=== PATIENT | female | born 1940 | race Hispanic/Latino ===

== ENCOUNTER 2018-08-24 09:17 | Outpatient (CLI) | payer MEDICARE ==
--- NOTE | 2018-08-24 12:19 | Vascular Lab Report ---
PROCEDURE: VL VENOUS DUPLEX LE BILAT TECHNIQUE: Duplex Doppler sonography of the BILATERAL lower extremities. Frye scale imaging with and without compression, spectral waveform analysis with and without augmentation, and color flow Dopple r were employed. HISTORY: DVT RIGHT LEG CALF COMPARISONS: None FINDINGS: RIGHT lower EXTREMITY: Deep Venous Thrombus: None Superficial Venous Thrombus: None Venous valvular incompetence: None Soft tissue abnormality: Enlarged lymph node in the right groin measuring approximately 3 x 1.3 cm. LEFT lower EXTREMITY: Deep Venous Thrombus: None Superficial Venous Thrombus: None Venous valvular incompetence: None Soft tissue abnormality: 2.6 x 1.3 cm Coffey's cyst. Enlarged lymph node in the left groin measuring approximately 2.4 x 1.1 cm. IMPRESSION: No evidence of deep venous thrombosis in the bilateral lower extremities. 2.6 x 1.3 cm left Coffey cyst. Enlarged bilateral groin lymph nodes. This document is electronically signed by Pallavi Angela MD., Aug 24 2018 12:16:26 PM ET
== END 2018-08-24 09:18 | disposition home or self-care (01) ==
LOC: VAS 09:17
PROVIDERS: ATTEND Psychiatry & Neurology Neurology
DX: I82.491 Acute embolism and thrombosis of other specified deep vein of right lower extremity (principal); M71.22 Synovial cyst of popliteal space [Baker], left knee; I11.0 Hypertensive heart disease with heart failure; I50.9 Heart failure, unspecified; Z90.710 Acquired absence of both cervix and uterus
CPT/HCPCS: 93970

== ENCOUNTER 2020-02-25 11:04 | Inpatient (IN) | payer MEDICARE ==
--- NOTE | 2020-02-25 11:08 | Emergency Department Report ---
ED Neuro Deficit HPI - General Chief Complaint: Neuro Symptoms/Deficit Stated Complaint: STROKE Time Seen by Provider: 02/25/20 11:05 Source: patient, family, EMS (Verbal report received from emergency medical services. EMS documentation not available at time of chart dictation ), RN notes reviewed, old records reviewed Mode of arrival: Stretcher Limitations: Physical Limitation - History of Present Illness Initial Comments: The patient was evaluated in the emergency department for symptoms described in the history of present illness. He/she was evaluated in the context of the global COVID-19 pandemic, which necessitated consideration that the patient might be at risk for infection with the virus that causes COVID-19. Institutional protocols and algorithms that pertain to the evaluation of patients at risk for COVID-19 are in a state of rapid change based on information released by regulatory bodies including the CDC and federal and state organizations. These policies and algorithms were followed during the patient's care in the emergency department. Please note that these policies, procedures and recommendations changed on a rapid basis. Patient is a 79-year-old female. She has a history of A. fib, aortic stenosis, hypertension, diabetes, hyperlipidemia, anxiety, obesity. She also has a history of traumatic subdural hematoma, and is not currently on systemic anticoagulation. She is brought to the hospital by emergency medical services, in addition to her daughter, with a concern of presumed stroke. Patient herself denies physical pain. She indicates she is not able to speak clearly. She is not certain when the symptoms started. I discussed the patient's history with her daughter, Ms. Estrella Ferro, who indicated the patient was in her usual state of health last night, and woke up this morning with slurred speech. As per her daughter, no trauma, no fever, positive cough, positive lower extremity swelling, no loss of taste or smell, no hematemesis or bright red blood per rectum. The patient herself does not describe qualitative nature of her symptoms, except as noted, I does not describe exacerbating factor s, relieving factors, or aggravating factors. -: This morning Location: speech Presenting Symptoms: Present: Unable to Speak Clearly History of same: No Place: home On Anticoagulants: No Context: other (Patient woke up with symptoms) - Related Data Home Medications: Home Medications Medication Instructions Recorded Confirmed Last Taken ALPRAZolam [Xanax] 0.25 mg PO HS 04/30/13 01/30/17 01/29/17 Aspirin [Aspirin BABY CHEW TAB] 81 mg PO QDAY 04/30/13 01/30/17 01/29/17 Metoprolol [Lopressor TAB] 50 mg PO TID 04/30/13 01/30/17 01/29/17 allopurinoL [Zyloprim] 100 mg PO QDAY 04/30/13 01/30/17 01/29/17 traMADoL [Ultram 50 MG tab] 50 mg PO QHS PRN 04/30/13 01/30/17 01/29/17 Losartan [Cozaar] 100 mg PO QDAY 05/05/13 01/30/17 01/29/17 Furosemide [Lasix TAB] 20 mg PO 1XW 01/30/17 01/30/17 01/24/17 Allergies/Adverse Reactions: Allergies Allergy/AdvReac Type Severity Reaction Status Date / Time codeine Allergy Rash Verified 05/05/13 12:11 phenazopyridine HCl Allergy Rash Verified 04/30/13 14:23 [From Pyridium] electrolyzed water AdvReac Shortness Verified 01/29/17 20:56 [From Microcyn] of Breath hydromorphone [Hydromorphone] AdvReac Dizziness Verified 05/05/13 12:11 hypochlorous acid AdvReac Shortness Verified 01/29/17 20:56 [From Microcyn] of Breath morphine AdvReac Dizziness Verified 05/05/13 12:11 sodium chloride AdvReac Shortness Verified 01/29/17 20:56 [From Microcyn] of Breath sodium hypochlorite solution AdvReac Shortness Verified 01/29/17 20:56 [From Microcyn] of Breath ED Review of Systems ROS: Stated complaint: STROKE Other details as noted in HPI Comment: Unobtainable due to pts medical conditions Constitutional: denies: fever Respiratory: cough, shortness of breath Cardiovascular: edema Gastrointestinal: denies: nausea, vomiting, diarrhea Genitourinary: as per HPI Musculoskeletal: as per HPI Skin: as per HPI Neurological: as per HPI, weakness, other (Slurred speech) ED Past Medical Hx - Past Medical History Hx Hypertension: Yes Hx Congestive Heart Failure: Yes Additional medical history: a-fib - Surgical History Hx Cholecystectomy: Yes Additional Surgical History: 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 - Social History Smoking Status: Never Smoker - Medications Home Medications: Home Medications Medication Instructions Recorded Confirmed Last Taken Type ALPRAZolam [Xanax] 0.25 mg PO HS 04/30/13 01/30/17 01/29/17 History Aspirin [Aspirin BABY CHEW TAB] 81 mg PO QDAY 04/30/13 01/30/17 01/29/17 History Metoprolol [Lopressor TAB] 50 mg PO TID 04/30/13 01/30/17 01/29/17 History allopurinoL [Zyloprim] 100 mg PO QDAY 04/30/13 01/30/17 01/29/17 History traMADoL [Ultram 50 MG tab] 50 mg PO QHS PRN 04/30/13 01/30/17 01/29/17 History Losartan [Cozaar] 100 mg PO QDAY 05/05/13 01/30/17 01/29/17 History Furosemide [Lasix TAB] 20 mg PO 1XW 01/30/17 01/30/17 01/24/17 History ED Neuro Physical Exam - General Limitations: Physical Limitation General appearance: alert, in no apparent distress, anxious, obese Suspected Stroke: Yes - Head Head exam: Present: atraumatic, normocephalic - Eye Eye exam: Present: normal appearance, EOMI. Absent: nystagmus - ENT ENT exam: Present: normal exam, normal orophraynx, mucous membranes moist, normal external ear exam - Neck Neck exam: Present: normal inspection, full ROM. Absent: tenderness, meningismus - Respiratory Respiratory exam: Present: normal lung sounds bilaterally, decreased breath sounds. Absent: respiratory distress, wheezes, rales, rhonchi, stridor - Cardiovascular Cardiovascular Exam: Present: regular rate, irregular rhythm, normal heart sounds. Absent: bradycardia, tachycardia, systolic murmur, diastolic murmur, rubs, gallop - GI/Abdominal GI/Abdominal exam: Present: soft. Absent: distended, tenderness, guarding, rebound, rigid, pulsatile mass - Extremities Exam Extremities exam: Present: normal inspection, full ROM, pedal edema (2+ edema in the bilateral lower extremities), other (2+ pulses noted in the bilateral upper and lower extremities. There is no palpable cord. negative Homans sign. Muscular compartments are soft. The pelvis is stable.). Absent: calf tendernes s - Back Exam Back exam: Present: normal inspection, full ROM. Absent: tenderness, CVA tenderness (R), CVA tenderness (L), paraspinal tenderness, vertebral tenderness - Neurological Exam Neurological exam: Present: alert, other (No facial droop. Tongue midline. Extraocular movements intact bilaterally. Facial sensation intact to light touch in V1, V2, V3 distribution bilaterally. 5 and a 5 strength in 4 extremities. Sensation intact to light touch in 4 extremities.) - NIHSS Assessment Interval: Baseline 1a. Level of Consciousness: alert/keenly responsive 1b. LOC Questions: dysarthric/intubated 1c. LOC Commands: performs tasks correctly 2. Best Gaze: normal 3. Visual: no visual loss 4. Facial Palsy: normal symmetrical movement 5b. Motor Arm Right: no drift 5a. Motor Arm Left: no drift 6a. Motor Leg Left: no drift 6b. Motor Leg Right: no drift 7. Limb Ataxia: absent 8. Sensory: normal 9. Best Language: no aphasia 10. Dysarthria: severe dysarthria 11. Extinction/Inattention: no abnormality Total Score: 3 Stroke Severity: Minor Stroke - Psychiatric Psychiatric exam: Present: anxious - Skin Skin exam: Present: warm, dry, intact, normal color. Absent: rash ED Course Vital Signs 02/25/20 11:30 Temperature 97.7 F Pulse Rate 72 Respiratory 17 Rate Blood Pressure 122/78 [Left] O2 Sat by Pulse 97 Oximetry - Reevaluation(s) Reevaluation #1: 02/25/20 13:21 The patient's daughter is updated on findings. She indicates the patient follows with [facility] cardiology. She asks that I discussed the patient's care with them. I think it would be worthwhile to have cardiology closely follow-up with the patient, as she is currently in A. fib, and is experiencing subacute stroke, and probable CHF. It would be helpful for the inpatient team to have cardiology input, in order to determine long-term anticoagulation strategy, if any. Reevaluation #2: 02/25/20 13:26 Contacted cardiology on-call, ALICE Rizo, discussed patient's history, physical, pertinent examination findings and laboratory studies, cardiology will follow on the inpatient side of things, and make further determinations and recommendations as to patient's need for systemic anticoagulation. - Lab Data Result diagrams: 02/25/20 11:25 02/25/20 11:25 Lab Results 02/25/20 02/25/20 02/25/20 Range/Units 11:25 11:25 11:25 WBC 4.9 (4.5-11.0) K/mm3 RBC 3.76 (3.65-5.03) M/mm3 Hgb 12.7 (10.1-14.3) gm/dl Hct 36.9 (30.3-42.9) % MCV 98 H (79-97) fl MCH 34 H (28-32) pg MCHC 35 H (30-34) % RDW 14.9 (13.2-15.2) % Plt Count 86 L (140-440) K/mm3 Lymph % (Auto) 16.3 (13.4-35.0) % Dubois % (Auto) 11.0 H (0.0-7.3) % Eos % (Auto) 3.7 (0.0-4.3) % Baso % (Auto) 0.9 (0.0-1.8) % Lymph # (Auto) 0.8 L (1.2-5.4) K/mm3 Dubois # (Auto) 0.5 (0.0-0.8) K/mm3 Eos # (Auto) 0.2 (0.0-0.4) K/mm3 Baso # (Auto) 0.0 (0.0-0.1) K/mm3 Add Manual Diff Complete Seg Neutrophils % 68.3 (40.0-70.0) % Seg Neutrophils # 3.3 (1.8-7.7) K/mm3 PT 14.0 (12.2-14.9) Sec. INR 1.06 (0.87-1.13) APTT 32.0 (24.2-36.6) Sec. Thrombin Time 17.5 (15.1-19.6) Sec. Sodium (137-145) mmol/L Potassium (3.6-5.0) mmol/L Chloride (98-107) mmol/L Carbon Dioxide (22-30) mmol/L Anion Gap mmol/L BUN (7-17) mg/dL Creatinine (0.6-1.2) mg/dL Estimated GFR ml/min BUN/Creatinine Ratio % Glucose (65-100) mg/dL POC Glucose (70-105) mg/dL Calcium (8.4-10.2) mg/dL Magnesium (1.7-2.3) mg/dL Total Bilirubin (0.1-1.2) mg/dL AST (5-40) units/L ALT (7-56) units/L Alkaline Phosphatase (35-129) units/L Total Creatine Kinase 47 (30-135) units/L CK-MB (CK-2) 2.1 (0.0-4.0) ng/mL CK-MB (CK-2) Rel Index 4.4 H (0-4) Troponin T < 0.010 (0.00-0.029) ng/mL NT-Pro-B Natriuret Pep (0-900) pg/mL Total Protein (6.3-8.2) g/dL Albumin (3.9-5) g/dL Albumin/Globulin Ratio % 02/25/20 02/25/20 Range/Units 11:25 11:40 WBC (4.5-11.0) K/mm3 RBC (3.65-5.03) M/mm3 Hgb (10.1-14.3) gm/dl Hct (30.3-42.9) % MCV (79-97) fl MCH (28-32) pg MCHC (30-34) % RDW (13.2-15.2) % Plt Count (140-440) K/mm3 Lymph % (Auto) (13.4-35.0) % Dubois % (Auto) (0.0-7.3) % Eos % (Auto) (0.0-4.3) % Baso % (Auto) (0.0-1.8) % Lymph # (Auto) (1.2-5.4) K/mm3 Dubois # (Auto) (0.0-0.8) K/mm3 Eos # (Auto) (0.0-0.4) K/mm3 Baso # (Auto) (0.0-0.1) K/mm3 Add Manual Diff Seg Neutrophils % (40.0-70.0) % Seg Neutrophils # (1.8-7.7) K/mm3 PT (12.2-14.9) Sec. INR (0.87-1.13) APTT (24.2-36.6) Sec. Thrombin Time (15.1-19.6) Sec. Sodium 141 (137-145) mmol/L Potassium 3.6 (3.6-5.0) mmol/L Chloride 102.4 (98-107) mmol/L Carbon Dioxide 28 (22-30) mmol/L Anion Gap 14 mmol/L BUN 37 H (7-17) mg/dL Creatinine 1.3 H (0.6-1.2) mg/dL Estimated GFR 40 ml/min BUN/Creatinine Ratio 28 % Glucose 106 H (65-100) mg/dL POC Glucose 114 H (70-105) mg/dL Calcium 9.6 (8.4-10.2) mg/dL Magnesium 2.10 (1.7-2.3) mg/dL Total Bilirubin 1.30 H (0.1-1.2) mg/dL AST 31 (5-40) units/L ALT 13 (7-56) units/L Alkaline Phosphatase 131 H (35-129) units/L Total Creatine Kinase (30-135) units/L CK-MB (CK-2) (0.0-4.0) ng/mL CK-MB (CK-2) Rel Index (0-4) Troponin T (0.00-0.029) ng/mL NT-Pro-B Natriuret Pep 2504 H (0-900) pg/mL Total Protein 6.8 (6.3-8.2) g/dL Albumin 3.7 L (3.9-5) g/dL Albumin/Globulin Ratio 1.2 % - EKG Data -: EKG Interpreted by Tx 02/25/20 12:58 A. fib, 79 bpm, normal axis, QTC 485 ms, motion artifact. The EKG is abnormal. The EKG is not a STEMI. - Radiology Data Radiology results: report reviewed, image reviewed Print Report Referring Physician: ORLANDO GUSTAFSON Patient Name: TONY WILLIAMSON Date of : 1940 Sex: Female Report Date: 2020-02-25 Report Status: Finalized Findings [facility] [address] [place] [address] Cat Scan Report Signed Patient: TONY WILLIAMSON MR#: [id number] : 1940 Acct:[id number] Age/Sex: 79 / F ADM Date: 02/25/20 Loc: ED Attendin tesfaye Bonilla: Ordering Physician: ORLANDO GUSTAFSON MD Date of Service: 02/25/20 Procedure(s): CT head/brain wo con Accession Number(s): [id number] cc: ORLANDO GUSTAFSON MD CT head/brain wo con INDICATION / CLINICAL INFORMATION: 79 years Female; headache, lightheaded. TECHNIQUE: Routine CT head without contrast. All CT scans at this location are performed using CT dose reduction for ALARA by means of automated exposure control. COMPARISON: The study is compared to the previous CT of 01/29/2017. FINDINGS: BRAIN / INTRACRANIAL CONTENTS: There is mild cerebral white matter disease most consistent with microvascular angiopathy. There is also mild cerebral atrophy with associated prominence of the ventricular system. There is no clear CT evidence of acute intracranial hemorrhage or significant mass effect. ORBITS: No significant abnormality of visualized orbits. SINUSES / MASTOIDS: No significant abnormality in the visualized paranasal sinuses or mastoid air cells. 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 ADDITIONAL FINDINGS: None. IMPRESSION: 1. There is continued mild microvascular angiopathy and cerebral atrophy without CT evidence of acute intracranial hemorrhage. Signer Name: Orlando Norman MD Signed: 02/25/2020 11:35 AM Workstation Name: [id number] Transcribed By: MR Dictated By: Orlando Norman MD Electronically Authenticated By: Orlando Norman MD Signed Date/Time: 02/25/20 1135 DD/ 1131 TD/TT: - Medical Decision Making Differential diagnosis, including but not limited to: Stroke, pneumonia, urinary tract infection, CHF, dependent edema Assessment and plan: 79-year-old female who presents with wake-up dysarthria. Last known well time is yesterday. She is therefore not a TPA candidate. Her examination is not suggestive of a large vessel occlusion. CT scan of the brain shows no acute findings. X-ray of the chest suggest cardiomegaly and pulmonary vascular congestion. She also has lower extremity edema. She was seen and evaluated by stroke neurology, who recommended admission for presumed subacute stroke. Urinalysis is pending at this time. Have discussed extensively with the patient's daughter, who verbalizes understanding, and who is amenable to this plan of care. Hospital physician, Dr. Steven Hylton to admit - Core Measures Measure Exclusions: not indicated - Thrombolytic Inclusion/Exclusion Thrombolytic Exclusion Criteria: Onset of Symptoms Unknown (Patient woke up with symptoms) Critical Care Time: Yes Critical care time in (mins) excluding proc time.: 35 Critical care attestation.: If time is entered above; I have spent that time in minutes in the direct care of this critically ill patient, excluding procedure time. Critical Care Time: Critical care time includes multiple bedside reevaluations, interpretation of laboratory studies, radiology studies, discussion with multiple consulting services, including neurology, and hospital medicine, and extensive time spent with patient's daughter to obtain collateral information and obtain history of present illness, as patient herself was not able to do so. This does not include procedure time ED Disposition Clinical Impression: Chronic atrial fibrillation, CVA (cerebral vascular accident), Edema Disposition: [id number] OP ADMIT IP TO THIS HOSP Is pt being admited?: Yes Does the pt Need Aspirin: Yes Condition: Stable Referrals: PRIMARY,CARE [Other] - 3-5 Days
--- NOTE | 2020-02-25 11:24 | Consultation ---
History of Present Illness - Reason for Consult Consult date: 02/25/20 - History of Present Illness [facility] Date of Service: 02/25/2020 10:56:24 Impression: Small Vessel Infarct Comments/Sign-Out: She needs to be admitted for further testing with brain MRI, carotids and echocardiogram. PT/OT/speechh therapy will be beneficial. Avoid precipitous drop in blood pressure. Mechanism of Stroke: Possible Thromboembolic Metrics: Last Known Well: 02/24/2020 20:00:00 [facility] Notification Time: 02/25/2020 10:56:24 Arrival Time: 02/25/2020 11:02:00 Stamp Time: 02/25/2020 10:56:24 Time First Login Attempt: 02/25/2020 10:59:00 Video Start Time: 02/25/2020 10:59:00 Symptoms: Slurred speech and facial droop NIHSS Start Assessment Time: 02/25/2020 11:16:25 Patient is not a candidate for Alteplase/Activase. Patient was not deemed candidate for Alteplase/Activase thrombolytics because of Last Well Known Above 4.5 Hours. Video End Time: 02/25/2020 11:23:34 CT head showed no acute hemorrhage or acute core infarct. Clinical Presentation is not Suggestive of Large Vessel Occlusive Disease ED Physician notified of diagnostic impression and management plan on 02/25/2020 11:23:36 Our recommendations are outlined below. Recommendations: Activate Stroke Protocol Admission/Order Set Stroke/Telemetry Floor Neuro Checks Bedside Swallow Eval DVT Prophylaxis IV Fluids, Normal Saline Head of Bed 30 Degrees Euglycemia and Avoid Hyperthermia (PRN Acetaminophen) Antiplatelet Therapy Recommended Sign Out: Discussed with Emergency Department Provider History of Present Illness: Patient is a 79 year old Female. Patient was brought by EMS for symptoms of Slurred speech and facial droop 79-year-old female with past medical history significant for hypertension, pedal edema, TIA and atrial fibrillation not on anticoagulant since 2012 after handling on anticoagulants. She was last known normal at about 8 PM yesterday before she went to bed. She woke up this morning and at the breakfast table her daughter notice that she was having slurred speech and left facial droop. She was brought to the hospital for further workup. She has NIH of two for the left facial droop and slurred speech. CAT scan is negative for bleed. There are no signs of large vessel occlusion. She's not a candidate for alteplase as she is outside the window. She is to be admitted for further testing with brain MRI, carotids and echo. She may be started on aspirin if no contraindications. Last seen normal was beyond 4.5 hours of presentation. There is no history of hemorrhagic complications or intracranial hemorrhage. There is no history of Recent Anticoagulants. There is no history of recent major surgery. There is no history of recent stroke. Past Medical History: Hypertension Atrial Fibrillation Stroke There is NO history of Diabetes Mellitus There is NO history of Hyperlipidemia There is NO history of Coronary Artery Disease Examination: BP(120/67), Pulse(80), Blood Glucose(104) 1A: Level of Consciousness - Alert; keenly responsive + 0 1B: Ask Month and Age - Both Questions Right + 0 1C: Blink Eyes & Squeeze Hands - Performs Both Tasks + 0 2: Test Horizontal Extraocular Movements - Normal + 0 3: Test Visual Wray - No Visual Loss + 0 4: Test Facial Palsy (Use Grimace if Obtunded) - Minor paralysis (flat nasolabial fold, smile asymmetry) + 1 5A: Test Left Arm Motor Drift - No Drift for 10 Seconds + 0 5B: Test Right Arm Motor Drift - No Drift for 10 Seconds + 0 6A: Test Left Leg Motor Drift - No Drift for 5 Seconds + 0 6B: Test Right Leg Motor Drift - No Drift for 5 Seconds + 0 7: Test Limb Ataxia (FNF/Heel-Bradley) - No Ataxia + 0 8: Test Sensation - Normal; No sensory loss + 0 9: Test Language/Aphasia - Normal; No aphasia + 0 10: Test Dysarthria - Mild-Moderate Dysarthria: Slurring but can be understood + 1 11: Test Extinction/Inattention - No abnormality + 0 NIHSS Score: 2 Patient/Family was informed the Neurology Consult would happen via TeleHealth consult by way of interactive audio and video telecommunications and consented t o receiving care in this manner. Due to the immediate potential for life-threatening deterioration due to underlying acute neurologic illness, I spent 30 minutes providing critical care. This time includes time for face to face visit via telemedicine, review of medical records, imaging studies and discussion of findings with providers, the patient and/or family. Dr Layne Cheng [facility] Case [id number] Medications and Allergies Allergies Allergy/AdvReac Type Severity Reaction Status Date / Time codeine Allergy Rash Verified 05/05/13 12:11 phenazopyridine HCl Allergy Rash Verified 04/30/13 14:23 [From Pyridium] electrolyzed water AdvReac Shortness Verified 01/29/17 20:56 [From Microcyn] of Breath hydromorphone [Hydromorphone] AdvReac Dizziness Verified 05/05/13 12:11 hypochlorous acid AdvReac Shortness Verified 01/29/17 20:56 [From Microcyn] of Breath morphine AdvReac Dizziness Verified 05/05/13 12:11 sodium chloride AdvReac Shortness Verified 01/29/17 20:56 [From Microcyn] of Breath sodium hypochlorite solution AdvReac Shortness Verified 01/29/17 20:56 [From Microcyn] of Breath Home Medications Medication Instructions Recorded Confirmed Last Taken Type ALPRAZolam [Xanax] 0.25 mg PO HS 04/30/13 01/30/17 01/29/17 History Aspirin [Aspirin BABY CHEW TAB] 81 mg PO QDAY 04/30/13 01/30/17 01/29/17 History Metoprolol [Lopressor TAB] 50 mg PO TID 04/30/13 01/30/17 01/29/17 History allopurinoL [Zyloprim] 100 mg PO QDAY 04/30/13 01/30/17 01/29/17 History traMADoL [Ultram 50 MG tab] 50 mg PO QHS PRN 04/30/13 01/30/17 01/29/17 History Losartan [Cozaar] 100 mg PO QDAY 05/05/13 01/30/17 01/29/17 History Furosemide [Lasix TAB] 20 mg PO 1XW 01/30/17 01/30/17 01/24/17 History
--- NOTE | 2020-02-25 11:39 | Cat Scan Report ---
CT head/brain wo con INDICATION / CLINICAL INFORMATION: 79 years Female; headache, lightheaded. TECHNIQUE: Routine CT head without contrast. All CT scans at this location are performed using CT dos e reduction for ALARA by means of automated exposure control. COMPARISON: The study is compared to the previous CT of 01/29/2017. FINDINGS: BRAIN / INTRACRANIAL CONTENTS: There is mild cerebral white matter disease most consistent with micro vascular angiopathy. There is also mild cerebral atrophy with associated prominence of the ventricula r system. There is no clear CT evidence of acute intracranial hemorrhage or significant mass effect. ORBITS: No significant abnormality of visualized orbits. SINUSES / MASTOIDS: No significant abnormality in the visualized paranasal sinuses or mastoid air bentley ls. 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 ADDITIONAL FINDINGS: None. IMPRESSION: 1. There is continued mild microvascular angiopathy and cerebral atrophy without CT evidence of acute intracranial hemorrhage. Signer Name: Orlando Norman MD Signed: 02/25/2020 11:35 AM Workstation Name: [id number]
[2020-02-25 11:40] LABS: Eosinophils # (Auto) 0.2 K/mm3 (0.0-0.4); Eosinophils % (Auto) 3.7 % (0.0-4.3); Monocytes # (Auto) 0.5 K/mm3 (0.0-0.8)
[2020-02-25 11:57] LABS: INR 1.06 (0.87-1.13)
[2020-02-25 11:58] LABS: Thrombin Time 17.5 Sec. (15.1-19.6)
[2020-02-25 12:03] LABS: Red Blood Count 3.76 M/mm3 (3.65-5.03)
[2020-02-25 12:04] LABS: Basophils % (Auto) 0.9 % (0.0-1.8); Hematocrit 36.9 % (30.3-42.9); Hemoglobin 12.7 gm/dl (10.1-14.3); Lymphocytes # (Auto) 0.8 K/mm3 (1.2-5.4); Lymphocytes % (Auto) 16.3 % (13.4-35.0); Mean Corpuscular HGB Conc 35 % (30-34); Mean Corpuscular Volume 98 fl (79-97); Platelet Count 86 K/mm3 (140-440); Red Cell Distribution Width 14.9 % (13.2-15.2)
[2020-02-25 12:10] LABS: Creatine Kinase MB 2.1 ng/mL (0.0-4.0)
[2020-02-25 12:13] LABS: Albumin 3.7 g/dL (3.9-5); Calcium 9.6 mg/dL (8.4-10.2)
[2020-02-25] MEDS ORDERED: ASPIRIN 81 MG TAB CHEW PO ONE (13:04)
[2020-02-25] MEDS ORDERED: FUROSEMIDE 40 MG/4 ML INJ IV ONE (13:26)
--- NOTE | 2020-02-25 14:52 | Consultation ---
History of Present Illness Consult date: 02/25/20 Requesting physician: CASSIDY GUSTAFSON Consult reason: atrial fibrillation History of present illness: The pt is a 79 YO female with a past medical history of permanent atrial fibrillation, no systemic AC due to h/o fall with subdural hematoma (>10 years ago), aortic stenosis (moderate to severe), HTN, DM, HLP, chronic BLE edema, advanced dementia. She is followed in our office by Dr. Hart. She presented to ED via EMS accompanied by her daughter for evaluation of possible stroke. Pt's daughter reports that pt went to sleep in her normal state of health last night. Pt awoke today around 8:30AM and her daughter noted her to have "glassy eyes" and difficultly speaking and swallowing. Pt denies any c/o pain, no cardiac complaints. 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 tte done 01/2017 showed EF 50-55%, mod LVH, LA severely dilated, RA mod dilated, mild to mod AR, severe (mean gradient 44mmHg, ABBY 0.42cm), mild MR, mild to mod TR, RVSP 51mmHg, mod pulm HTN, small pericardial effusion. LHC 01/2017 showed normal coronaries, peak AV gradient 20mmHg, moderate . Past History Past Medical History: other (as per HPI) Medications and Allergies Allergies Allergy/AdvReac Type Severity Reaction Status Date / Time codeine Allergy Rash Verified 05/05/13 12:11 phenazopyridine HCl Allergy Rash Verified 04/30/13 14:23 [From Pyridium] electrolyzed water AdvReac Shortness Verified 01/29/17 20:56 [From Microcyn] of Breath hydromorphone [Hydromorphone] AdvReac Dizziness Verified 05/05/13 12:11 hypochlorous acid AdvReac Shortness Verified 01/29/17 20:56 [From Microcyn] of Breath morphine AdvReac Dizziness Verified 05/05/13 12:11 sodium chloride AdvReac Shortness Verified 01/29/17 20:56 [From Microcyn] of Breath sodium hypochlorite solution AdvReac Shortness Verified 01/29/17 20:56 [From Microcyn] of Breath Home Medications Medication Instructions Recorded Confirmed Last Taken Type ALPRAZolam [Xanax] 0.25 mg PO HS 04/30/13 02/25/20 02/24/20 History Metoprolol [Lopressor TAB] 50 mg PO TID 04/30/13 02/25/20 02/25/20 09:05 History allopurinoL [Zyloprim] 100 mg PO QDAY 04/30/13 02/25/20 02/24/20 12:00 History traMADoL [Ultram 50 MG tab] 50 mg PO QHS PRN 04/30/13 02/25/20 02/24/20 History Furosemide [Lasix TAB] 20 mg PO QDAY 01/30/17 02/25/20 02/25/20 09:05 History Memantine [Namenda] 10 mg PO BID 02/25/20 02/25/20 02/25/20 09:05 History metOLazone [Zaroxolyn] 2.5 mg PO 2XW 02/25/20 02/25/20 02/25/20 09:05 History Review of Systems Constitutional: no weight loss, no weight gain, no fever, no chills, no sweats Ears, nose, mouth and throat: no ear pain, no nose pain, no sinus pressure, no sinus pain Cardiovascular: dyspnea on exertion, leg edema, no chest pain, no orthopnea, no palpitations, no rapid/irregular heart beat, no syncope, no lightheadedness, no shortness of breath Respiratory: no cough, no congestion, no wheezing, no pain on inspiration Gastrointestinal: no abdominal pain, no nausea, no vomiting, no diarrhea, no constipation, no change in bowel habits Genitourinary Female: no pelvic pain, no flank pain, no dysuria, no urinary frequency, no urgency Musculoskeletal: no neck stiffness, no neck pain, no shooting arm pain, no arm numbness/tingling, no low back pain, no shooting leg pain Integumentary: no rash, no pruritis, no redness, no sores, no wounds Neurological: change in speech, change in mentation, other (difficulty swallowing ), no head injury, no paralysis, no weakness, no parathesias, no numbness, no tingling, no seizures, no syncope Psychiatric: no anxiety Endocrine: no cold intolerance, no heat intolerance Hematologic/Lymphatic: no easy bruising, no easy bleeding Allergic/Immunologic: no urticaria Physical Examination Vital Signs Pulse Resp Pulse Ox 82 14 95 02/25/20 11:02/25/20 11:02/25/20 11:25 General appearance: no acute distress, other (withdrawn) HEENT: Positive: PERRL, Normocephaly, Mucus Membranes Moist Cardiac: Positive: irregularly irregular, S1/S2 Lungs: Positive: Decreased Breath Sounds Neuro: Positive: Other (withdrawn) Skin: Negative: Rash Musculoskeletal: No Pain Extremities: Present: +3 Edema (BLE) Results 02/25/20 11:02/25/20 11: Cardiac Enzymes 02/25/20 02/25/20 Range/Units 11: 11: AST 31 (5-40) units/L CK-MB (CK-2) 2.1 (0.0-4.0) ng/mL Coagulation 02/25/20 Range/Units 11:25 PT 14.0 (12.2-14.9) Sec. INR 1.06 (0.87-1.13) APTT 32.0 (24.2-36.6) Sec. CBC 02/25/20 Range/Units 11:25 WBC 4.9 (4.5-11.0) K/mm3 RBC 3.76 (3.65-5.03) M/mm3 Hgb 12.7 (10.1-14.3) gm/dl Hct 36.9 (30.3-42.9) % Plt Count 86 L (140-440) K/mm3 Lymph # (Auto) 0.8 L (1.2-5.4) K/mm3 [place] # (Auto) 0.5 (0.0-0.8) K/mm3 Eos # (Auto) 0.2 (0.0-0.4) K/mm3 Baso # (Auto) 0.0 (0.0-0.1) K/mm3 Comprehensive Metabolic Panel 02/25/20 Range/Units 11:25 Sodium 141 (137-145) mmol/L Potassium 3.6 (3.6-5.0) mmol/L Chloride 102.4 (98-107) mmol/L Carbon Dioxide 28 (22-30) mmol/L BUN 37 H (7-17) mg/dL Creatinine 1.3 H (0.6-1.2) mg/dL Glucose 106 H (65-100) mg/dL Calcium 9.6 (8.4-10.2) mg/dL AST 31 (5-40) units/L ALT 13 (7-56) units/L Alkaline Phosphatase 131 H (35-129) units/L Total Protein 6.8 (6.3-8.2) g/dL Albumin 3.7 L (3.9-5) g/dL - Imaging and Cardiology Echo: report reviewed (12/2018 showed EF 65%, RV mildly dilated, LA and RA severely dilated, 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 ) Cardiac cath: report reviewed (01/2017 showed normal coronaries, peak AV gra dient 20mmHg, moderate . ) EKG: report reviewed, image reviewed EKG interpretations - Telemetry EKG Rhythm: Atrial Fibrillation - EKG Supraventricular dysrhythmia: atrial fibrillation Assessment and Plan Neuro w/u in progress. Obtain tte. Pt has h/o aortic stenosis. Will likely continue with conservative cardiac management given age, dementia and multiple co-morbidities. Initiate IV diuretics and monitor renal indices closely. Pt has h/o fall with subdural hematoma >10 years ago and thus she has not been on systemic OAC for AFib. Pt's daughter lives with pt, denies any falls in many years. Pt may benefit from initiation of [facility] systemic AC given current clinical presentation. Will await neuro w/u and recs regarding initiation systemic AC. The patient has been seen in conjunction with Dr. Conner who agrees with the assessment and plan of care. - Patient Problems (1) CVA (cerebral vascular accident) Current Visit: Yes Status: Suspected (2) Acute heart failure with preserved ejection fraction (HFpEF) Current Visit: Yes Status: Acute (3) Chronic atrial fibrillation Current Visit: Yes Status: Chronic (4) Aortic stenosis Current Visit: Yes Status: Chronic (5) History of subdural hematoma (post traumatic) Current Visit: Yes Status: Chronic (6) Hypertension Current Visit: Yes Status: Chronic (7) Diabetes Current Visit: Yes Status: Chronic (8) Hyperlipidemia Current Visit: Yes Status: Chronic (9) Dementia Current Visit: Yes Status: Chronic
--- NOTE | 2020-02-25 14:54 | XRay Report ---
CHEST 1 VIEW INDICATION: cough cva lower ext edema COMPARISON: None FINDINGS: SUPPORT DEVICES: None. HEART / MEDIASTINUM: Cardiac enlargement is present LUNGS / PLEURA: No significant pulmonary or pleural abnormality. No pneumothorax. ADDITIONAL FINDINGS: IMPRESSION: 1. No acute cardiopulmonary disease Signer Name: Gagan Beck MD Signed: 02/25/2020 2:50 PM Workstation Name: [id number]
[2020-02-25 15:44] LABS: Bilirubin,Urine NEG (Negative); Blood,Urine NEG (Negative); Color,Urine Straw (Yellow); Mucus,Urine FEW /HPF; Protein,Urine <15 mg/dL mg/dL (Negative); Urobilinogen,Urine < 2.0 mg/dL (<2.0); WBC,Urine < 1.0 /HPF (0.0-6.0)
[2020-02-25] MEDS ORDERED: FUROSEMIDE 40 MG/4 ML INJ IV SCH (18:00)
--- NOTE | 2020-02-25 20:23 | History and Physical Report ---
History of Present Illness Date of examination: 02/25/20 Date of admission: 02/25/20 13:04 Chief complaint: Dysarthria for 1 day History of present illness: Patient is a 79-year-old female. She has a history of A. fib, aortic stenosis, hypertension, diabetes, hyperlipidemia, anxiety, obesity. She also has a history of traumatic subdural hematoma, and is not currently on systemic anticoagulation. She is brought to the hospital by emergency medical services, in addition to her daughter, with a concern of presumed stroke. Patient herself denies physical pain. She indicates she is not able to speak clearly. She is not certain when the symptoms started. I discussed the patient's history with her daughter, Ms. Estrella Ferro, who indicated the patient was in her usual state of health last night, and woke up this morning with slurred speech. As per her daughter, no trauma, no fever, positive cough, positive lower extremity swelling, no loss of taste or smell, no hematemesis or bright red blood per rectum. The patient herself does not describe qualitative nature of her symptoms, except as noted, I does not describe exacerbating factors, relieving factors, or aggravating factors. -: This morning Location: speech Presenting Symptoms: Present: Unable to Speak Clearly History of same: No Place: home On Anticoagulants: No Context: other (Patient woke up with symptoms) - Related Data Home Medications: Home Medications Medication Instructions Recorded Confirmed Last Taken ALPRAZolam [Xanax] 0.25 mg PO HS 04/30/13 01/30/17 01/29/17 Aspirin [Aspirin BABY CHEW TAB] 81 mg PO QDAY 04/30/13 01/30/17 01/29/17 Metoprolol [Lopressor TAB] 50 mg PO TID 04/30/13 01/30/17 01/29/17 allopurinoL [Zyloprim] 100 mg PO QDAY 04/30/13 01/30/17 01/29/17 traMADoL [Ultram 50 MG tab] 50 mg PO QHS PRN 04/30/13 01/30/17 01/29/17 Losartan [Cozaar] 100 mg PO QDAY 05/05/13 01/30/17 01/29/17 Furosemide [Lasix TAB] 20 mg PO 1XW 01/30/17 01/30/17 01/24/17 Allergies/Adverse Reactions: Allergies Allergy/AdvReac Type Severity Reaction Status Date / Time codeine Allergy Rash Verified 05/05/13 12:11 phenazopyridine HCl Allergy Rash Verified 04/30/13 14:23 [From Pyridium] electrolyzed water AdvReac Shortness Verified 01/29/17 20:56 [From Microcyn] of Breath hydromorphone [Hydromorphone] AdvReac Dizziness Verified 05/05/13 12:11 hypochlorous acid AdvReac Shortness Verified 01/29/17 20:56 [From Microcyn] of Breath morphine AdvReac Dizziness Verified 05/05/13 12:11 sodium chloride AdvReac Shortness Verified 01/29/17 20:56 [From Microcyn] of Breath sodium hypochlorite solution AdvReac Shortness Verified 01/29/17 20:56 [From Microcyn] of Breath - Past Medical History Hx Hypertension: Yes Hx Congestive Heart Failure: Yes Additional medical history: a-fib - Surgical History Hx Cholecystectomy: Yes Additional Surgical History: 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 - Social History Smoking Status: Never Smoker - Medications Home Medications: Home Medications Medication Instructions Recorded Confirmed Last Taken Type ALPRAZolam [Xanax] 0.25 mg PO HS 04/30/13 01/30/17 01/29/17 History Aspirin [Aspirin BABY CHEW TAB] 81 mg PO QDAY 04/30/13 01/30/17 01/29/17 History Metoprolol [Lopressor TAB] 50 mg PO TID 04/30/13 01/30/17 01/29/17 History allopurinoL [Zyloprim] 100 mg PO QDAY 04/30/13 01/30/17 01/29/17 History traMADoL [Ultram 50 MG tab] 50 mg PO QHS PRN 04/30/13 01/30/17 01/29/17 History Losartan [Cozaar] 100 mg PO QDAY 05/05/13 01/30/17 01/29/17 History Furosemide [Lasix TAB] 20 mg PO 1XW 01/30/17 01/30/17 01/24/17 History Review of Systems ROS: Stated complaint: STROKE Other details as noted in HPI Comment: Unobtainable due to pts medical conditions Constitutional: denies: fever Respiratory: cough, shortness of breath Cardiovascular: edema Gastrointestinal: denies: nausea, vomiting, diarrhea Genitourinary: as per HPI Musculoskeletal: as per HPI Skin: as per HPI Neurological: as per HPI, weakness, other (Slurred speech) Past History Past Medical History: other (as per HPI) Medications and Allergies Allergies Allergy/AdvReac Type Severity Reaction Status Date / Time codeine Allergy Rash Verified 05/05/13 12:11 phenazopyridine HCl Allergy Rash Verified 04/30/13 14:23 [From Pyridium] electrolyzed water AdvReac Shortness Verified 01/29/17 20:56 [From Microcyn] of Breath hydromorphone [Hydromorphone] AdvReac Dizziness Verified 05/05/13 12:11 hypochlorous acid AdvReac Shortness Verified 01/29/17 20:56 [From Microcyn] of Breath morphine AdvReac Dizziness Verified 05/05/13 12:11 sodium chloride AdvReac Shortness Verified 01/29/17 20:56 [From Microcyn] of Breath sodium hypochlorite solution AdvReac Shortness Verified 01/29/17 20:56 [From Microcyn] of Breath Home Medications Medication Instructions Recorded Confirmed Last Taken Type ALPRAZolam [Xanax] 0.25 mg PO HS 04/30/13 02/25/20 02/24/20 History Metoprolol [Lopressor TAB] 50 mg PO TID 04/30/13 02/25/20 02/25/20 09:05 History allopurinoL [Zyloprim] 100 mg PO QDAY 04/30/13 02/25/20 02/24/20 12:00 History traMADoL [Ultram 50 MG tab] 50 mg PO QHS PRN 04/30/13 02/25/20 02/24/20 History Furosemide [Lasix TAB] 20 mg PO QDAY 01/30/17 02/25/20 02/25/20 09:05 History Memantine [Namenda] 10 mg PO BID 02/25/20 02/25/20 02/25/20 09:05 History metOLazone [Zaroxolyn] 2.5 mg PO 2XW 02/25/20 02/25/20 02/25/20 09:05 History Active Meds: Active Medications Furosemide (Lasix) 40 mg IV 0600,1800 LENA Last Admin: 02/25/20 18:57 Dose: 40 mg Documented by: Exam - Constitutional Vitals: Temp Pulse Resp BP Pulse Ox 98.0 F 58 L 18 139/75 87 02/25/20 19:20 02/25/20 19:20 02/25/20 19:20 02/25/20 19:20 02/25/20 19:20 General appearance: Present: no acute distress, well-nourished - EENT Eyes: Present: PERRL ENT: hearing intact, clear oral mucosa - Neck Neck: Present: supple, normal ROM - Respiratory Respiratory effort: normal Respiratory: bilateral: CTA - Cardiovascular Heart rate: 78 Rhythm: irregularly irregular Heart Sounds: Present: S1 & S2. Absent: rub, click - Extremities Extremities: pulses symmetrical, No edema Peripheral Pulses: within normal limits - Abdominal General gastrointestinal: Present: soft, non-tender, non-distended, normal bowel sounds Female genitourinary: Present: normal - Integumentary Integumentary: Present: clear, warm, dry - Musculoskeletal Musculoskeletal: strength equal bilaterally, generalized weakness - Psychiatric Psychiatric: appropriate mood/affect, intact judgment & insight, cooperative - Neurologic Neurologic: CNII-XII intact, moves all extremities, other (Patient has dysarthria able to move all 4 extremities) - Allied Health Allied health notes reviewed: nursing, case management HEART Score - HEART Score Troponin: Troponin T < 0.010 ng/mL (0.00-0.029) 02/25/20 11:25 Results - Labs CBC & Chem 7: 02/26/20 05:08 02/27/20 05:06 Labs: Laboratory Last Values WBC 4.9 K/mm3 (4.5-11.0) 02/25/20 11:25 RBC 3.76 M/mm3 (3.65-5.03) 02/25/20 11:25 Hgb 12.7 gm/dl (10.1-14.3) 02/25/20 11:25 Hct 36.9 % (30.3-42.9) 02/25/20 11:25 MCV 98 fl (79-97) H 02/25/20 11:25 MCH 34 pg (28-32) H 02/25/20 11:25 MCHC 35 % (30-34) H 02/25/20 11:25 RDW 14.9 % (13.2-15.2) 02/25/20 11:25 Plt Count 86 K/mm3 (140-440) L 02/25/20 11:25 Lymph % (Auto) 16.3 % (13.4-35.0) 02/25/20 11:25 [place] % (Auto) 11.0 % (0.0-7.3) H 02/25/20 11:25 Eos % (Auto) 3.7 % (0.0-4.3) 02/25/20 11:25 Baso % (Auto) 0.9 % (0.0-1.8) 02/25/20 11:25 Lymph # (Auto) 0.8 K/mm3 (1.2-5.4) L 02/25/20 11:25 [place] # (Auto) 0.5 K/mm3 (0.0-0.8) 02/25/20 11:25 Eos # (Auto) 0.2 K/mm3 (0.0-0.4) 02/25/20 11:25 Baso # (Auto) 0.0 K/mm3 (0.0-0.1) 02/25/20 11:25 Add Manual Diff Complete 02/25/20 11:25 Seg Neutrophils % 68.3 % (40.0-70.0) 02/25/20 11:25 Seg Neutrophils # 3.3 K/mm3 (1.8-7.7) 02/25/20 11:25 PT 14.0 Sec. (12.2-14.9) 02/25/20 11:25 INR 1.06 (0.87-1.13) 02/25/20 11:25 APTT 32.0 Sec. (24.2-36.6) 02/25/20 11:25 Thrombin Time 17.5 Sec. (15.1-19.6) 02/25/20 11:25 Sodium 141 mmol/L (137-145) 02/25/20 11:25 Potassium 3.6 mmol/L (3.6-5.0) 02/25/20 11:25 Chloride 102.4 mmol/L (98-107) 02/25/20 11:25 Carbon Dioxide 28 mmol/L (22-30) 02/25/20 11:25 Anion Gap 14 mmol/L 02/25/20 11:25 BUN 37 mg/dL (7-17) H 02/25/20 11:25 Creatinine 1.3 mg/dL (0.6-1.2) H 02/25/20 11:25 Estimated GFR 40 ml/min 02/25/20 11:25 BUN/Creatinine Ratio 28 % 02/25/20 11:25 Glucose 106 mg/dL (65-100) H 02/25/20 11:25 POC Glucose 114 mg/dL (70-105) H 02/25/20 11:40 Calcium 9.6 mg/dL (8.4-10.2) 02/25/20 11:25 Magnesium 2.10 mg/dL (1.7-2.3) 02/25/20 11:25 Total Bilirubin 1.30 mg/dL (0.1-1.2) H 02/25/20 11:25 AST 31 units/L (5-40) 02/25/20 11:25 ALT 13 units/L (7-56) 02/25/20 11:25 Alkaline Phosphatase 131 units/L (35-129) H 02/25/20 11:25 Total Creatine Kinase 47 units/L (30-135) 02/25/20 11:25 CK-MB (CK-2) 2.1 ng/mL (0.0-4.0) 02/25/20 11:25 CK-MB (CK-2) Rel Index 4.4 (0-4) H 02/25/20 11:25 Troponin T < 0.010 ng/mL (0.00-0.029) 02/25/20 11:25 NT-Pro-B Natriuret Pep 2504 pg/mL (0-900) H 02/25/20 11:25 Total Protein 6.8 g/dL (6.3-8.2) 02/25/20 11:25 Albumin 3.7 g/dL (3.9-5) L 02/25/20 11:25 Albumin/Globulin Ratio 1.2 % 02/25/20 11:25 Urine Color Straw (Yellow) 02/25/20 15:29 Urine Turbidity Clear (Clear) 02/25/20 15: Urine pH 6.0 (5.0-7.0) 02/25/20 15:29 Ur Specific [place] 1.006 (1.003-1.030) 02/25/20 15: Urine Protein <15 mg/dl mg/dL (Negative) 02/25/20 15: Urine Glucose (UA) Neg mg/dL (Negative) 02/25/20 15: Urine Ketones Neg mg/dL (Negative) 02/25/20 15: Urine Blood Neg (Negative) 02/25/20 15: Urine Nitrite Neg (Negative) 02/25/20 15: Urine Bilirubin Neg (Negative) 02/25/20 15: Urine Urobilinogen < 2.0 mg/dL (<2.0) 02/25/20 15: Ur Leukocyte Esterase Sm (Negative) 02/25/20 15: Urine WBC (Auto) < 1.0 /HPF (0.0-6.0) 02/25/20 15: Urine RBC (Auto) 1.0 /HPF (0.0-6.0) 02/25/20 15: Urine Mucus Few /HPF 02/25/20 15: Short CBC 02/25/20 Range/Units 11:25 WBC 4.9 (4.5-11.0) K/mm3 Hgb 12.7 (10.1-14.3) gm/dl Hct 36.9 (30.3-42.9) % Plt Count 86 L (140-440) K/mm3 BMP 02/25/20 11:25 Sodium 141 Potassium 3.6 Chloride 102.4 Carbon Dioxide 28 BUN 37 H Creatinine 1.3 H Glucose 106 H Calcium 9.6 Cardiac Enzymes 02/25/20 Range/Units 11:25 Total Creatine Kinase 47 (30-135) units/L CK-MB (CK-2) 2.1 (0.0-4.0) ng/mL Troponin T < 0.010 (0.00-0.029) ng/mL Liver Function 02/25/20 Range/Units 11:25 Total Bilirubin 1.30 H (0.1-1.2) mg/dL AST 31 (5-40) units/L ALT 13 (7-56) units/L Alkaline Phosphatase 131 H (35-129) units/L Albumin 3.7 L (3.9-5) g/dL Urine 02/25/20 Range/Units 15: Urine Color Straw (Yellow) Urine pH 6.0 (5.0-7.0) Ur Specific [place] 1.006 (1.003-1.030) Urine Protein <15 mg/dl (Negative) mg/dL Urine Glucose (UA) Neg (Negative) mg/dL - Imaging and Cardiology EKG: report reviewed Chest x-ray: report reviewed (No acute findings) Uriarte/IV: Voiding Method External Female Catheter IV Catheter Type [Right Wrist] Peripheral IV Assessment and Plan Advance Directives: Yes (Full code) VTE prophylaxis?: Chemical Plan of care discussed with patient/family: Yes - Patient Problems (1) CVA (cerebral vascular accident) Current Visit: Yes Status: Acute Qualifiers: CVA mechanism: thrombosis Plan to address problem: Old MRI of #8 reviewed no acute stroke or bleed patient due for MRI tomorrow Stroke work-up initiated Neurology consult requested Patient has a history of cerebral bleed 5 years ago Neurology to recommend whether to start blood thinners because MRI from yesterday was negative and a new MRI is pending (2) CHF (congestive heart failure), NYHA class I Current Visit: Yes Status: Chronic Qualifiers: Congestive heart failure chronicity: acute on chronic Plan to address problem: IV Lasix 40 mg preceded by Zaroxolyn 30 minutes before IV Lasix Daily weights Daily intake output Cardiology consult (3) Hypertension Current Visit: Yes Status: Chronic Qualifiers: Hypertension type: essential hypertension Qualified Code(s): I10 - Essential (primary) hypertension Plan to address problem: Continue antihypertensives (4) Gout Current Visit: Yes Status: Inactive Plan to address problem: Continue allopurinol for prevention (5) DVT prophylaxis Current Visit: Yes Status: Acute Plan to address problem: On SCDs and GI prophylaxis
[2020-02-25] MEDS ORDERED: ACETAMINOPHEN 325 MG TAB PO PRN (20:28)
[2020-02-25] MEDS ORDERED: ONDANSETRON 4 MG/2 ML INJ IV PRN (20:28)
[2020-02-25] MEDS ORDERED: HYDROmorphone 1 MG/1 ML INJ IV PRN (20:28)
[2020-02-25] MEDS ORDERED: traMADol 50 MG TAB PO PRN (20:32)
[2020-02-25] MEDS: allopurinoL 100 MG TAB PO SCH (22:00)
[2020-02-25] MEDS: ALPRAZolam 0.25 MG TAB PO SCH (22:00)
[2020-02-25] MEDS: oxyCODONE /ACETAMINOPHEN 5-325MG TAB PO PRN (22:00)
[2020-02-25] MEDS: FAMOTIDINE 20 MG TAB PO SCH (22:01)
[2020-02-25] MEDS: HEPARIN 5,000 UNIT/1 ML VIAL SUB-Q SCH (22:01)
[2020-02-25] MEDS: ASPIRIN 325 MG TAB PO SCH (22:01)
[2020-02-25] MEDS: metOLazone 2.5 MG TAB PO SCH (22:01)
[2020-02-25] MEDS: POTASSIUM CHLORIDE ER 20 MEQ TAB PO SCH (22:01)
[2020-02-25] MEDS: MEMANTINE 5 MG TAB PO SCH (22:10)
[2020-02-26 06:45] LABS: Basophils % (Auto) 0.7 % (0.0-1.8); Eosinophils # (Auto) 0.1 K/mm3 (0.0-0.4); Eosinophils % (Auto) 2.2 % (0.0-4.3); Hematocrit 39.5 % (30.3-42.9); Lymphocytes # (Auto) 1.2 K/mm3 (1.2-5.4); Lymphocytes % (Auto) 19.2 % (13.4-35.0); Mean Corpuscular HGB Conc 33 % (30-34); Mean Corpuscular Volume 101 fl (79-97); Monocytes # (Auto) 0.7 K/mm3 (0.0-0.8); Monocytes % (Auto) 10.8 % (0.0-7.3); Red Blood Count 3.92 M/mm3 (3.65-5.03); Red Cell Distribution Width 14.9 % (13.2-15.2)
[2020-02-26 06:47] LABS: Platelet Count 91 K/mm3 (140-440)
[2020-02-26 07:06] LABS: Chol/HDL Ratio 1.9 %
[2020-02-26] MEDS ORDERED: METOPROLOL TARTRATE 50 MG TAB PO SCH (08:00)
[2020-02-26] MEDS: FUROSEMIDE 40 MG/4 ML INJ IV SCH (08:59)
[2020-02-26] MEDS: HEPARIN 5,000 UNIT/1 ML VIAL SUB-Q SCH ×2 (09:09→21:51)
[2020-02-26] MEDS: MEMANTINE 5 MG TAB PO SCH ×2 (09:11→21:51)
[2020-02-26] MEDS: FAMOTIDINE 20 MG TAB PO SCH (09:11)
[2020-02-26] MEDS: metOLazone 2.5 MG TAB PO SCH (09:12)
[2020-02-26] MEDS: POTASSIUM CHLORIDE ER 20 MEQ TAB PO SCH (09:12)
[2020-02-26] MEDS: ASPIRIN 325 MG TAB PO SCH (09:12)
[2020-02-26] MEDS: METOPROLOL TARTRATE 50 MG TAB PO SCH ×2 (09:13→21:51)
[2020-02-26] MEDS: allopurinoL 100 MG TAB PO SCH (09:15)
--- NOTE | 2020-02-26 09:58 | Progress Note ---
Assessment and Plan Await tte. Pt has h/o aortic stenosis. Will likely continue with conservative cardiac management given age, dementia and multiple co-morbidities. Cont IV diuretics and monitor renal indices closely. Pt has h/o fall with subdural hematoma ~7 years ago and thus she has not been on systemic OAC for AFib. Pt's daughter lives with pt, denies any falls in many years. Recommend initiation of [facility] systemic AC given current clinical presentation if ok with neurology. D/w pt's daughter via phone, pt's daughter is in agreement with initiation of OAC. Neuro w/u in progress. Await neuro recs regarding initiation of terminal operations manager systemic AC. The patient has been seen in conjunction with Dr. Conner who agrees with the assessment and plan of care. - Patient Problems (1) CVA (cerebral vascular accident) Current Visit: Yes Status: Suspected (2) Acute heart failure with preserved ejection fraction (HFpEF) Current Visit: Yes Status: Acute (3) Chronic atrial fibrillation Current Visit: Yes Status: Chronic (4) Aortic stenosis Current Visit: Yes Status: Chronic (5) History of subdural hematoma (post traumatic) Current Visit: Yes Status: Chronic (6) Hypertension Current Visit: Yes Status: Chronic (7) Diabetes Current Visit: Yes Status: Chronic (8) Hyperlipidemia Current Visit: Yes Status: Chronic (9) Dementia Current Visit: Yes Status: Chronic Subjective Date of service: 02/26/20 Principal diagnosis: ? CVA; AFib Interval history: pt resting in bed, appears more alert today, eating breakfast without difficulty. tele reviewed - in AFib with HR 90s. Objective Last Vital Signs Temp 97.5 F L 02/26/20 08:33 Pulse 94 H 02/26/20 09:13 Resp 18 02/26/20 08:33 BP 122/73 02/26/20 09:13 Pulse Ox 94 02/26/20 08:33 - Physical Examination General: No Apparent Distress HEENT: Positive: PERRL, Normocephaly, Mucus Membranes Moist Cardiac: Positive: irregularly irregular, S1/S2 Lungs: Positive: Decreased Breath Sounds Neuro: Positive: Other (withdrawn) Skin: Negative: Rash Musculoskeletal: No Pain Extremities: Present: +3 Edema (BLE) - Labs and Meds Cardiac Enzymes 02/25/20 02/25/20 Range/Units 11:25 11:25 AST 31 (5-40) units/L CK-MB (CK-2) 2.1 (0.0-4.0) ng/mL Coagulation 02/25/20 Range/Units 11:25 PT 14.0 (12.2-14.9) Sec. INR 1.06 (0.87-1.13) APTT 32.0 (24.2-36.6) Sec. Lipids 02/26/20 Range/Units 05:08 Triglycerides 60 (2-149) mg/dL Cholesterol 95 (50-199) mg/dL HDL Cholesterol 50 (40-59) mg/dL Cholesterol/HDL Ratio 1.90 % CBC 02/25/20 02/26/20 Range/Units 11:25 05:08 WBC 4.9 6.2 (4.5-11.0) K/mm3 RBC 3.76 3.92 (3.65-5.03) M/mm3 Hgb 12.7 13.0 (10.1-14.3) gm/dl Hct 36.9 39.5 (30.3-42.9) % Plt Count 86 L 91 L (140-440) K/mm3 Lymph # (Auto) 0.8 L 1.2 (1.2-5.4) K/mm3 [place] # (Auto) 0.5 0.7 (0.0-0.8) K/mm3 Eos # (Auto) 0.2 0.1 (0.0-0.4) K/mm3 Baso # (Auto) 0.0 0.0 (0.0-0.1) K/mm3 Comprehensive Metabolic Panel 02/25/20 02/26/20 Range/Units 11:25 05:08 Sodium 141 140 (137-145) mmol/L Potassium 3.6 3.4 L (3.6-5.0) mmol/L Chloride 102.4 100.3 (98-107) mmol/L Carbon Dioxide 28 27 (22-30) mmol/L BUN 37 H 34 H (7-17) mg/dL Creatinine 1.3 H 1.5 H (0.6-1.2) mg/dL Glucose 106 H 90 (65-100) mg/dL Calcium 9.6 10.0 (8.4-10.2) mg/dL AST 31 (5-40) units/L ALT 13 (7-56) units/L Alkaline Phosphatase 131 H (35-129) units/L Total Protein 6.8 (6.3-8.2) g/dL Albumin 3.7 L (3.9-5) g/dL - Imaging and Cardiology EKG: report reviewed Echo: report reviewed (12/2018 showed EF 65%, RV mildly dilated, LA and RA severely dilated, 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 ) Cardiac cath: report reviewed (01/2017 showed normal coronaries, peak AV gradient 20mmHg, moderate . ) - Telemetry EKG Rhythm: Atrial Fibrillation
--- NOTE | 2020-02-26 10:13 | Consultation ---
History of Present Illness Consult date: 02/26/20 Requesting physician: CYNDEE CARLOS Reason for Consult: CVA Chief complaint: Slurred Speech History of present illness: 79 yo female with afib (not on anticoagulation secondary to SDH), htn, dm, hld, anxiety, obesity, who presents with a LKNormal of bedtime and then waking up with noted difficulty with her speech, specifically getting the words out and with slurring of her speech. Currently, the patient continues with the same symptoms and has no other complaints. Past History Past Medical History: atrial fib, diabetes, hypertension, hyperlipidemia, other (as per HPI) Medications and Allergies Allergies Allergy/AdvReac Type Severity Reaction Status Date / Time codeine Allergy Rash Verified 05/05/13 12:11 phenazopyridine HCl Allergy Rash Verified 04/30/13 14:23 [From Pyridium] electrolyzed water AdvReac Shortness Verified 01/29/17 20:56 [From Microcyn] of Breath hydromorphone [Hydromorphone] AdvReac Dizziness Verified 05/05/13 12:11 hypochlorous acid AdvReac Shortness Verified 01/29/17 20:56 [From Microcyn] of Breath morphine AdvReac Dizziness Verified 05/05/13 12:11 sodium chloride AdvReac Shortness Verified 01/29/17 20:56 [From Microcyn] of Breath sodium hypochlorite solution AdvReac Shortness Verified 01/29/17 20:56 [From Microcyn] of Breath Home Medications Medication Instructions Recorded Confirmed Last Taken Type ALPRAZolam [Xanax] 0.25 mg PO HS 04/30/13 02/25/20 02/24/20 History Metoprolol [Lopressor TAB] 50 mg PO TID 04/30/13 02/25/20 02/25/20 09:05 History allopurinoL [Zyloprim] 100 mg PO QDAY 04/30/13 02/25/20 02/24/20 12:00 History traMADoL [Ultram 50 MG tab] 50 mg PO QHS PRN 04/30/13 02/25/20 02/24/20 History Furosemide [Lasix TAB] 20 mg PO QDAY 01/30/17 02/25/20 02/25/20 09:05 History Memantine [Namenda] 10 mg PO BID 02/25/20 02/25/20 02/25/20 09:05 History metOLazone [Zaroxolyn] 2.5 mg PO 2XW 02/25/20 02/25/20 02/25/20 09:05 History Active Meds: Active Medications Acetaminophen (Tylenol) 650 mg PO Q4H PRN PRN Reason: Pain MILD(1-3)/Fever >100.5/MCKEON Allopurinol (Zyloprim) 100 mg PO QDAY [facility] Last Admin: 02/26/20 09:15 Dose: 100 mg Documented by: Alprazolam (Xanax) 0.25 mg PO HS [facility] Last Admin: 02/25/20 22:00 Dose: 0.25 mg Documented by: Aspirin (Aspirin) 325 mg PO QDAY [facility] Last Admin: 02/26/20 09:12 Dose: 325 mg Documented by: Atorvastatin Calcium (Lipitor) 40 mg PO QHS [facility] Last Admin: 02/25/20 22:01 Dose: 40 mg Documented by: Famotidine (Pepcid) 20 mg PO BID [facility] Last Admin: 02/26/20 09:11 Dose: 20 mg Documented by: Furosemide (Lasix) 40 mg IV 0800 [facility] Last Admin: 02/26/20 08:59 Dose: 40 mg Documented by: Heparin Sodium (Porcine) (Heparin) 5,000 unit SUB-Q Q12HR [facility] Last Admin: 02/26/20 09:09 Dose: 5,000 unit Documented by: Hydromorphone HCl (Dilaudid) 0.5 mg IV Q3H PRN PRN Reason: Pain , Severe (7-10) Last Admin: 02/26/20 03:58 Dose: 0.5 mg Documented by: Memantine (Memantine) 10 mg PO BID [facility] Last Admin: 02/26/20 09:11 Dose: 10 mg Documented by: Metolazone (Zaroxolyn) 2.5 mg PO QDAY [facility] Last Admin: 02/26/20 09:12 Dose: 2.5 mg Documented by: Metoprolol Tartrate (Metoprolol) 100 mg PO BID [facility] Last Admin: 02/26/20 09:13 Dose: 100 mg Documented by: Ondansetron HCl (Zofran) 4 mg IV Q8H PRN PRN Reason: Nausea And Vomiting Oxycodone/Acetaminophen (Percocet 5/325) 1 tab PO Q6H PRN PRN Reason: Pain, Moderate (4-6) Last Admin: 02/25/20 22:00 Dose: 1 tab Documented by: Potassium Chloride (K-Dur) 20 meq PO QDAY [facility] Last Admin: 02/26/20 09:12 Dose: 20 meq Documented by: Sodium Chloride (Sodium Chloride Flush Syringe 10 Ml) 10 ml IV BID [facility] Last Admin: 02/26/20 09:09 Dose: 10 ml Documented by: Sodium Chloride (Sodium Chloride Flush Syringe 10 Ml) 10 ml IV PRN PRN PRN Reason: LINE FLUSH Sodium Chloride (Sodium Chloride Flush Syringe 10 Ml) 10 ml IV PRN PRN PRN Reason: LINE FLUSH Review of Systems All systems: negative (except as per HPI;) Physical Examination - Vital Signs Vital Signs: Vital Signs Pulse Resp Pulse Ox 82 14 95 02/25/20 11:25 02/25/20 11:25 02/25/20 11:25 - Additional Exam Additional Exam: Gen: nad, well-nourished; Head: normocephalic; Eyes: no gaze deviation; no ptosis; ENT: normal vocalization; CVS: warm and well-perfused; Pulm: no respiratory distress; GI: non-distended, +protuberant; Ext: +edema at distal lower extremities; Skin: no acute rash at distal extremities; Heme: no pathologic ecchymosis at distal extremities; Neuro: alert, oriented to name, not age, not month, not year, mild to moderate dysarthria, +perseveration; +tagential speech; mixed receptive/expressive dysphasia, CN 2 - PERRL, visual ramos grossly intact, CN 3, 4, 6 - EOMI, CN 5 - facial sensation decreased on left to light touch, CN 7 - facial movement asymm etric except left NLF is decreased, CN 8 - hearing grossly intact, CN 9, 10 - uvula midline, CN 11 - shrug symmetric, CN 12 - tongue midline; Motor - at least 3/5 in all exts o/w limtied by aphasia and pain (lower exts); Sensory - light touch decreased at left arm and right leg, Cerebellar - fnf difficulty w/ left > right; difficulty w/ bilatearl hts secondary to habitus and pain, Gait - deferred secondary to fall risk; NIHSS (1a.) Level of Consciousness:0 (1b.) LOC Questions:0 (1c.) LOC Commands:1 (2.) Best Gaze:0 (3.) Visual:0 (4.) Facial Palsy:1 (5a.) Motor Arm, Left:0 (5b.) Motor Arm, Right:0 (6a.) Motor Leg, Left:2 (6b.) Motor Leg, Right:2 (7.) Limb Ataxia:2 (8.) Sensory:1 (9.) Best Language:1 (10.) Dysarthria:1 (11.) Extinction and Inattention:1 NIHSS Total Score: 12 Results - Laboratory Findings CBC and BMP: 02/26/20 05:08 02/26/20 05:08 Abnormal Lab Findings: Abnormal Labs 02/25/20 02/25/20 02/25/20 11:25 11:25 11:25 MCV 98 H MCH 34 H MCHC 35 H Plt Count 86 L [place] % (Auto) 11.0 H Lymph # (Auto) 0.8 L Potassium BUN 37 H Creatinine 1.3 H Glucose 106 H POC Glucose Total Bilirubin 1.30 H Alkaline Phosphatase 131 H CK-MB (CK-2) Rel Index 4.4 H NT-Pro-B Natriuret Pep 2504 H Albumin 3.7 L 02/25/20 02/26/20 02/26/20 11:40 05:08 05:08 MCV 101 H MCH 33 H MCHC Plt Count 91 L [place] % (Auto) 10.8 H Lymph # (Auto) Potassium 3.4 L BUN 34 H Creatinine 1.5 H Glucose POC Glucose 114 H Total Bilirubin Alkaline Phosphatase CK-MB (CK-2) Rel Index NT-Pro-B Natriuret Pep Albumin Assessment and Plan 79 yo female with afib (not on anticoagulation secondary to SDH), htn, d, hld, anxiety, obesity, who presents with a LKNormal of bedtime and then waking up with noted difficulty with her speech. PLAN 1. Acute Ischemic Stroke: ASA 325 mg PO qday, MRI Brain w/o contrast, TTEcho, CUS, check LDL/HgbA1C/TSH-T4, goal 160-200 mmHg and DBP 80-100 mmHg for 48 hours and then slowly normalize. Statin therapy for a goal LDL of 70, when patient passes swallow evaluation. Please see #6 below. PT/OT/ST/Swallow evaluation. Long-term risk-factor modification, including a strict diet/exercise regimen for secondary stroke prophylaxis. 2. Hypertension - goal SBP 160-200 mmHg and DBP 80-200 mmHg for 48 hours and then slowly normalize. 3. Diabetes Mellitus - maintain euglycemia. 4. Hyperlipidemia - goal LDL of 70 w/ statin therapy if no contraindications. 5. Dysarthria / Dysphagia - st / swallow evaluation/monitoring. 6. Atrial Fibrillation w/ aortic stenosis (?valvular afib) - hx of SDH; recommend Watchman procedure via Cardiology for secondary stroke prophylaxis; if severe aortic stenosis - consider TAVR. 7. Hx of SDH - see #6. Jose Trivedi MD Neurology
--- NOTE | 2020-02-26 14:50 | Vascular Lab Report ---
BILATERAL CAROTID DOPPLER ULTRASOUND INDICATION : stroke TECHNIQUE: Grayscale and color Doppler imaging performed through the neck. COMPARISON: None FINDINGS: Right: There is no significant atherosclerotic disease. Peak systolic velocity in the CCA is 53 cm/ s with end-diastolic velocity of 14 cm/s. Peak systolic velocity in the proximal ICA is 72 cm/s with end-diastolic velocity of 16 cm/s. ICA to CCA ratio is less than 2. There is antegrade flow in the E CA and the vertebral artery. Left: There is no significant atherosclerotic disease. Peak systolic velocity in the CCA is 56 cm/s w ith end-diastolic velocity of 10 cm/s. Peak systolic velocity in the proximal ICA is 89 cm/s with end -diastolic velocity of 27 cm/s. ICA to CCA ratio is less than 2. There is antegrade flow in the ECA and the vertebral artery. IMPRESSION: No hemodynamically significant stenosis by NASCET criteria. Doppler velocities indicate l ess than 50% luminal narrowing bilaterally. Signer Name: Uday Mesa Jr, MD Signed: 02/26/2020 2:45 PM Workstation Name: [id number]
--- NOTE | 2020-02-26 16:02 | Magnetic Resonance Report ---
MR brain wo con INDICATION / CLINICAL INFORMATION: 79 years Female; MAIN. TECHNIQUE: Multiplanar, multisequence MR images of the brain were obtained. COMPARISON: None available. FINDINGS: BRAIN / INTRACRANIAL CONTENTS: The motion degrades the image quality. However, there is linear focus of acute infarction extending along the posterior right frontal lobe including the precentral gyrus m easuring approximately 3 cm in greatest AP dimension. There is a more focal 3-4 mm focus of acute isc hemia involving the right postcentral gyrus as well as along the deeper right parietal subcortical re gion. There is an old infarct involving the lateral left frontal lobe. On the FLAIR sequences, there are ot herwise scattered small hyperintense foci involving the cerebral white matter most consistent with mi crovascular angiopathy. There is moderate cerebral atrophy with associated prominence of the ventricu lar system. No extra-axial fluid collections are identified. There is presence of incidental empty se lla. CRANIOCERVICAL JUNCTION: There is developmental magna cisterna magna. VASCULAR FLOW-VOIDS: No significant abnormality. ORBITS: No significant abnormality of visualized orbits. SINUSES / MASTOIDS: No significant abnormality in the visualized paranasal sinuses or mastoid air bentley ls. ADDITIONAL FINDINGS: None. IMPRESSION: 1. There are acute infarcts along the right pre and post central gyri as detailed above. 2. There is otherwise chronic microvascular angiopathy and moderate cerebral atrophy, also described above. Signer Name: Orlando Norman MD Signed: 02/26/2020 3:57 PM Workstation Name: [id number]
--- NOTE | 2020-02-26 16:09 | Magnetic Resonance Report ---
MR MRA/MRV head wo con INDICATION / CLINICAL INFORMATION: 79 years Female; MAIN. TECHNIQUE: 3-D time of flight. NASCET type criteria used to evaluate stenoses. COMPARISON: None available. FINDINGS: INTERNAL CAROTID ARTERIES: The motion degrades image quality. However, there is no clear MRA evidence of significant focal stenosis involving the distal internal carotid arteries by NASCET criteria. 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 There is no signific ant focal narrowing involving the basilar artery. CEREBRAL ARTERIES: The proximal cerebral arteries and adjacent segments appear to demonstrate appropr iate caliber without clear evidence of significant focal stenosis. The loss of signal within the P2 s egment of the left SOFTWARE DESIGN ANALYST on the mid images appears to be related to the degree of motion artifact seen on the source imaging. ANEURYSM: There is no definitive MRA evidence of intracranial aneurysm. IMPRESSION: The motion degrades image quality. 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 There is no clear MRA evidence of significant focal stenosis involving intracranial vessels. Signer Name: Orlando Norman MD Signed: 02/26/2020 4:04 PM Workstation Name: [id number]
[2020-02-26] MEDS: ALPRAZolam 0.25 MG TAB PO SCH (21:50)
[2020-02-26] MEDS: traMADol 50 MG TAB PO PRN (21:50)
[2020-02-27 05:49] LABS: Calcium 9.9 mg/dL (8.4-10.2)
--- NOTE | 2020-02-27 07:17 | Progress Note ---
Assessment and Plan - Patient Problems (1) CVA (cerebral vascular accident) Current Visit: Yes Status: Acute Qualifiers: CVA mechanism: thrombosis Plan to address problem: Old MRI of #8 reviewed no acute stroke or bleed patient due for MRI tomorrow Stroke work-up initiated Neurology consult requested Patient has a history of cerebral bleed 5 years ago Neurology to recommend whether to start blood thinners because MRI from yesterday was negative and a new MRI is pending New MRI consistent with acute CVA Will defer to neurology regarding starting blood thinners Patient has a history of cerebral bleed 5 years ago (2) Hypertension Current Visit: Yes Status: Chronic Qualifiers: Hypertension type: essential hypertension Qualified Code(s): I10 - Essential (primary) hypertension Plan to address problem: Continue antihypertensives (3) CHF (congestive heart failure), NYHA class I Current Visit: Yes Status: Chronic Qualifiers: Congestive heart failure chronicity: acute on chronic Plan to address problem: IV Lasix 40 mg preceded by Zaroxolyn 30 minutes before IV Lasix Daily weights Daily intake output Cardiology consult (4) Gout Current Visit: Yes Status: Inactive Qualifiers: Gout site: ankle Plan to address problem: Continue allopurinol for prevention (5) DVT prophylaxis Current Visit: Yes Status: Acute Plan to address problem: On SCDs and GI prophylaxis (6) Chronic atrial fibrillation Current Visit: Yes Status: Chronic Plan to address problem: Await tte. Pt has h/o aortic stenosis. Will likely continue with conservative cardiac management given age, dementia and multiple co-morbidities. Cont IV diuretics and monitor renal indices closely. Pt has h/o fall with subdural hematoma ~7 years ago and thus she has not been on systemic OAC for AFib. Pt's daughter lives with pt, denies any falls in many years. Recommend initiation of care home systemic AC given current clinical presentation if ok with neurology. D/w pt's daughter via phone, pt's daughter is in agreement with initiation of OAC. Neuro w/u in progress. Await neuro recs regarding initiation of termination clerk systemic AC. Subjective Date of service: 02/26/20 Principal diagnosis: ? CVA; AFib Interval history: Dysarthria for 1 day Objective - Constitutional Vitals: Vital Signs - 12hr 02/26/20 02/26/20 02/26/20 20:14 21:51 22:00 Temperature 98.0 F Pulse Rate 103 H 99 H Pulse Rate [ 103 H Left Radial] Pulse Rate [ 103 H Right Radial] Respiratory 19 18 Rate Blood Pressure 141/78 141/78 O2 Sat by Pulse 97 Oximetry 02/26/20 02/26/20 02/27/20 22:49 23:36 05:29 Temperature 98.3 F 97.7 F Pulse Rate 99 H 72 Pulse Rate [ Left Radial] Pulse Rate [ Right Radial] Respiratory 18 20 Rate Blood Pressure 145/78 149/70 O2 Sat by Pulse 100 99 Oximetry General appearance: Present: no acute distress, well-nourished - EENT Eyes: PERRL, EOM intact ENT: hearing intact, clear oral mucosa Ears: bilateral: normal - Neck Neck: supple, normal ROM - Respiratory Respiratory effort: normal Respiratory: bilateral: CTA - Breasts Breasts: normal - Cardiovascular Heart rate: 78 Rhythm: regular Heart Sounds: Present: S1 & S2. Absent: gallop, rub Extremities: pulses intact, No edema, normal color, Full ROM - Gastrointestinal General gastrointestinal: Present: soft, non-tender, non-distended, normal bowel sounds - Genitourinary Female genitourinary: normal - Integumentary Integumentary: clear, warm, dry - Musculoskeletal Musculoskeletal: 1, strength equal bilaterally - Neurologic Neurologic: moves all extremities, other - Psychiatric Psychiatric: memory intact, appropriate mood/affect, intact judgment & insight - Allied health notes Allied health notes reviewed: nursing, case management - Labs CBC & Chem 7: 02/26/20 05:08 02/27/20 05:06 Labs: Abnormal lab results 02/26/20 02/27/20 Range/Units 21:26 05:06 Potassium 3.4 L (3.6-5.0) mmol/L Carbon Dioxide 32 H (22-30) mmol/L BUN 31 H (7-17) mg/dL Creatinine 1.6 H (0.6-1.2) mg/dL POC Glucose 112 H (70-105) mg/dL Brain MRI There is acute infarcts along the right pre and post stent to prior as detailed above is otherwise chronic microvascular angiopathy and moderate cerebral atrop hy also described above. HEART Score - HEART Score Troponin: Troponin T < 0.010 ng/mL (0.00-0.029) 02/25/20 11:25
[2020-02-27] MEDS: FUROSEMIDE 40 MG/4 ML INJ IV SCH (08:00)
--- NOTE | 2020-02-27 09:16 | Progress Note ---
Assessment and Plan Assessment and plan: CVA (cerebral vascular accident) Stroke work-up initiated Neurology consulted Patient has a history of cerebral bleed 5 years ago Neurology to recommend whether to start blood thinners because MRI from yesterday was negative and a new MRI consistent with acute CVA Statin therapy for a goal LDL of 70 Hypertension Continue antihypertensives, goal 160-200 mmHg and DBP 80-100 mmHg for 48 hours and then slowly normalize. CHF (congestive heart failure), NYHA class I IV Lasix 40 mg preceded by Zaroxolyn 30 minutes before IV Lasix Daily weights Daily intake output Cardiology consulted Gout Continue allopurinol for prevention DVT prophylaxis On SCDs and GI prophylaxis Chronic atrial fibrillation Await echocardiogram. Pt has h/o aortic stenosis. Will likely continue with conservative cardiac management given age, dementia and multiple co-morbidities. Cont IV diuretics and monitor renal indices closely. Pt has h/o fall with subdural hematoma ~7 years ago and thus she has not been on systemic OAC for AFib. Pt's daughter lives with pt, denies any falls in many years. Recommend initiation of terminal clerk systemic AC given current clinical pres entation if ok with neurology. Dr. Hylton D/w pt's daughter via phone, pt's daughter is in agreement with initiation of OAC. Neuro w/u in progress. Await neuro recs regarding initiation of terminal clerk sy stemic AC. Disposition. PT recommends subacute rehab placement History Interval history: No new issues overnight Hospitalist Physical - Constitutional Vitals: Temp Pulse Resp BP Pulse Ox 98.5 F 95 H 20 140/93 98 02/27/20 08:19 02/27/20 08:19 02/27/20 08:19 02/27/20 08:19 02/27/20 08:19 General appearance: Present: no acute distress, well-nourished - EENT Eyes: Present: PERRL, EOM intact ENT: hearing intact, clear oral mucosa, dentition normal - Neck Neck: Present: supple, normal ROM - Respiratory Respiratory effort: normal Respiratory: bilateral: CTA - Cardiovascular Rhythm: regular Heart Sounds: Present: S1 & S2. Absent: gallop, rub - Extremities Extremities: no ischemia, No edema, Full ROM - Abdominal General gastrointestinal: soft, non-tender, non-distended, normal bowel sounds - Integumentary Integumentary: Present: clear, warm, dry - Neurologic Neurologic: CNII-XII intact, moves all extremities HEART Score - HEART Score Troponin: Troponin T < 0.010 ng/mL (0.00-0.029) 02/25/20 11:25 Results - Labs CBC & Chem 7: 02/26/20 05:08 02/27/20 05:06 Labs: Laboratory Last Values WBC 6.2 K/mm3 (4.5-11.0) 02/26/20 05:08 RBC 3.92 M/mm3 (3.65-5.03) 02/26/20 05:08 Hgb 13.0 gm/dl (10.1-14.3) 02/26/20 05:08 Hct 39.5 % (30.3-42.9) 02/26/20 05:08 MCV 101 fl (79-97) H 02/26/20 05:08 MCH 33 pg (28-32) H 02/26/20 05:08 MCHC 33 % (30-34) 02/26/20 05:08 RDW 14.9 % (13.2-15.2) 02/26/20 05:08 Plt Count 91 K/mm3 (140-440) L 02/26/20 05:08 Lymph % (Auto) 19.2 % (13.4-35.0) 02/26/20 05:08 [place] % (Auto) 10.8 % (0.0-7.3) H 02/26/20 05:08 Eos % (Auto) 2.2 % (0.0-4.3) 02/26/20 05:08 Baso % (Auto) 0.7 % (0.0-1.8) 02/26/20 05:08 Lymph # (Auto) 1.2 K/mm3 (1.2-5.4) 02/26/20 05:08 [place] # (Auto) 0.7 K/mm3 (0.0-0.8) 02/26/20 05:08 Eos # (Auto) 0.1 K/mm3 (0.0-0.4) 02/26/20 05:08 Baso # (Auto) 0.0 K/mm3 (0.0-0.1) 02/26/20 05:08 Add Manual Diff Complete 02/25/20 11:25 Seg Neutrophils % 67.1 % (40.0-70.0) 02/26/20 05:08 Seg Neutrophils # 4.2 K/mm3 (1.8-7.7) 02/26/20 05:08 PT 14.0 Sec. (12.2-14.9) 02/25/20 11:25 INR 1.06 (0.87-1.13) 02/25/20 11:25 APTT 32.0 Sec. (24.2-36.6) 02/25/20 11:25 Thrombin Time 17.5 Sec. (15.1-19.6) 02/25/20 11:25 Sodium 142 mmol/L (137-145) 02/27/20 05:06 Potassium 3.4 mmol/L (3.6-5.0) L 02/27/20 05:06 Chloride 99.6 mmol/L (98-107) 02/27/20 05:06 Carbon Dioxide 32 mmol/L (22-30) H 02/27/20 05:06 Anion Gap 14 mmol/L 02/27/20 05:06 BUN 31 mg/dL (7-17) H 02/27/20 05:06 Creatinine 1.6 mg/dL (0.6-1.2) H 02/27/20 05:06 Estimated GFR 31 ml/min 02/27/20 05:06 BUN/Creatinine Ratio 19 % 02/27/20 05:06 Glucose 80 mg/dL (65-100) 02/27/20 05:06 POC Glucose 77 mg/dL (70-105) 02/27/20 08:37 Hemoglobin A1c 5.2 % (4-6) 02/25/20 11:30 Calcium 9.9 mg/dL (8.4-10.2) 02/27/20 05:06 Magnesium 2.10 mg/dL (1.7-2.3) 02/25/20 11:25 Total Bilirubin 1.30 mg/dL (0.1-1.2) H 02/25/20 11:25 AST 31 units/L (5-40) 02/25/20 11:25 ALT 13 units/L (7-56) 02/25/20 11:25 Alkaline Phosphatase 131 units/L (35-129) H 02/25/20 11:25 Total Creatine Kinase 47 units/L (30-135) 02/25/20 11:25 CK-MB (CK-2) 2.1 ng/mL (0.0-4.0) 02/25/20 11:25 CK-MB (CK-2) Rel Index 4.4 (0-4) H 02/25/20 11:25 Troponin T < 0.010 ng/mL (0.00-0.029) 02/25/20 11:25 NT-Pro-B Natriuret Pep 2504 pg/mL (0-900) H 02/25/20 11:25 Total Protein 6.8 g/dL (6.3-8.2) 02/25/20 11:25 Albumin 3.7 g/dL (3.9-5) L 02/25/20 11: Albumin/Globulin Ratio 1.2 % 02/25/20 11:25 Triglycerides 60 mg/dL (2-149) 02/26/20 05:08 Cholesterol 95 mg/dL (50-199) 02/26/20 05:08 LDL Cholesterol Direct 52 mg/dL (50-130) 02/26/20 05:08 HDL Cholesterol 50 mg/dL (40-59) 02/26/20 05:08 Cholesterol/HDL Ratio 1.90 % 02/26/20 05:08 Urine Color Straw (Yellow) 02/25/20 15: Urine Turbidity Clear (Clear) 02/25/20 15: Urine pH 6.0 (5.0-7.0) 02/25/20 15: Ur Specific [place] 1.006 (1.003-1.030) 02/25/20 15: Urine Protein <15 mg/dl mg/dL (Negative) 02/25/20 15: Urine Glucose (UA) Neg mg/dL (Negative) 02/25/20 15: Urine Ketones Neg mg/dL (Negative) 02/25/20 15: Urine Blood Neg (Negative) 02/25/20 15: Urine Nitrite Neg (Negative) 02/25/20 15: Urine Bilirubin Neg (Negative) 02/25/20 15: Urine Urobilinogen < 2.0 mg/dL (<2.0) 02/25/20 15: Ur Leukocyte Esterase Sm (Negative) 02/25/20 15: Urine WBC (Auto) < 1.0 /HPF (0.0-6.0) 02/25/20 15:29 Urine RBC (Auto) 1.0 /HPF (0.0-6.0) 02/25/20 15:29 Urine Mucus Few /HPF 02/25/20 15:29 - Diagnostic Impressions Diagnostic Impressions: Echocardiogram 02/26/20 08:00 Transthoracic Echocardiogram Indication: Aortic Stenosis BP: 141/68 HR: 73 Conclusions *Global left ventricular systolic function is normal. *The estimated ejection fraction is 50-55%. *Mild concentric left ventricular hypertrophy is observed. *The right ventricle is moderately dilated. *The right ventricular global systolic function is mildly reduced. *The right atrial cavity size is severely dilated. *Moderate aortic leaflet calcification is visualized.There is a echo bright density on the aortic valve. *There is severe aortic stenosis. *The mean gradient of the aortic valve is 48 mmHg. *The peak instantaneous gradient of the aortic valve is 77 mmHg. *The right atrial cavity size is severely dilated. *No atrial septal defected is demonstrated by agitated saline contrast. *There is mild mitral regurgitation. *There is severe tricuspid regurgitation. *The right ventricular systolic pressure is calculated at 45 mmHg. *There is trace pulmonic regurgitation. *There is a small pericardial effusion. Findings Left Ventricle: The left ventricular chamber size is normal. Mild concentric left ventricular hypertrophy is observed. Global left ventricular wall motion and contractility are within normal limits. Global left ventricular systolic function is normal. The estimated ejection fraction is 50-55%. Abnormal left ventricular diastolic function is observed. Left Atrium: The left atrium is severely dilated. Right Ventricle: The right ventricle is moderately dilated. The right ventricular global systolic function is mildly reduced. Right Atrium: The right atrial cavity size is severely dilated. No atrial septal defected is demonstrated by agitated saline contrast. Aortic Valve: Moderate aortic leaflet calcification is visualized.There is a echo bright density on the aortic valve. There is mild aortic regurgitation. There is severe aortic stenosis. The mean gradient of the aortic valve is 48 mmHg. The peak instantaneous gradient of the aortic valve is 77 mmHg. The aortic valve area, by peak velocities, is calculated at 0.4 cm2. Mitral Valve: There is mitral annular calcification. Mild mitral leaflet calcification is visualized. There is mild mitral regurgitation. Tricuspid Valve: The tricuspid valve leaflets are normal. There is severe tricuspid regurgitation. The right ventricular systolic pressure is calculated at 45 mmHg. Pulmonic Valve: The pulmonic valve appears normal. There is trace pulmonic regurgitation. Pericardium: There is a small pericardial effusion. Aorta: The aorta appears normal. Venous: The inferior vena cava is dilated. There is no change in the dimension of the inferior vena cava with respiration consistent with markedly increased right atrial pressure. Contrast: Intravenous agitated saline contrast was used to assess intracardiac shunting. Measurements Chambers 2D Name Value Normal Range IVSd (2D) 1.26 cm (0.6 - 1.1) LVPWd (2D) 1.14 cm (0.6 - 1.1) LVIDd (2D) 4.74 cm (3.7 - 5.6) LVIDs (2D) 3.39 cm (2 - 3.8) LV FS (2D) 28.4 % - EF Teichholz (2D) 54.77 % - Ao root diameter (2D) 3.15 cm (2 - 3.7) Volumes/Mass Name Value Normal Range LA ESV SP 4CH (A/L) 120.16 ml - LA ESV SP 2CH (A/L) 151.27 ml - LA ESV BP (A/L) 136.34 ml - LA ESV BP (A/L) index 69.92 ml/m2 - LA ESV SP 4CH (MOD) 112.62 ml - LA ESV SP 2CH (MOD) 147.19 ml - LA ESV BP (MOD) 129.62 ml - LA ESV BP (MOD) index 66.47 ml/m2 - Diastolic/Systolic Function Name Value Normal Range MV E-wave Vmax 1.16 m/sec - MV deceleration time 155.17 msec - Aortic Valve Name Value Normal Range AV Vmax 4.39 m/sec - AV VTI 101.25 cm - AV peak gradient 77 mmHg - AV mean gradient 48 mmHg - LVOT diameter 2.08 cm - LVOT Vmax 0.54 m/sec - LVOT VTI 11.83 cm - LVOT peak gradient 1.15 mmHg - LVOT mean gradient 0.69 mmHg - SV LVOT 40.04 ml - ABBY (continuity Vmax) 0.4 cm2 - ABBY (continuity VTI) 0.4 cm2 - AR PHT 480.66 msec - AR peak gradient 58.79 mmHg - Mitral Valve Name Value Normal Range MV Vmax 1.07 m/sec - MV VTI 19.67 cm - MV peak gradient 4.54 mmHg - MV mean gradient 1.73 mmHg - MR Vmax 3.25 m/sec - MVA (continuity VTI) 2.04 cm2 - Tricuspid Valve Name Value Normal Range TR Vmax 2.98 m/sec - TR peak gradient 35 mmHg - RAP 15 mmHg - RVSP 45 mmHg - IVC diameter 3.61 cm (1.2 - 2.3) Pulmonic Valve/Qp:Qs Name Value Normal Range PV Vmax 0.85 m/sec - PV peak gradient 2.86 mmHg - CA end-diastolic Vmax 1.49 m/sec - PV acceleration time 87.54 msec - Uriarte/IV: Voiding Method External Female Catheter IV Catheter Type [Right Wrist] Peripheral IV Active Medications - Current Medications Current Medications: Generic Name Dose Route Start Last Admin Trade Name Freq PRN Reason Stop Dose Admin Acetaminophen 650 mg 02/25/20 20:28 Tylenol PO Q4H PRN Pain MILD(1-3)/Fever >100.5/MCKEON Allopurinol 100 mg 02/25/20 22:00 02/26/20 09:15 Zyloprim PO 100 mg QDAY LENA Administration Alprazolam 0.25 mg 02/25/20 22:00 02/26/20 21:50 Xanax PO 0.25 mg HS LENA Administration Aspirin 325 mg 02/25/20 22:00 02/26/20 09:12 Aspirin PO 325 mg QDAY LENA Administration Atorvastatin Calcium 40 mg 02/25/20 22:00 02/26/20 21:51 Lipitor PO 40 mg QHS LENA Administration Famotidine 20 mg 02/27/20 10:00 Pepcid PO DAILY LENA Furosemide 40 mg 02/26/20 08:00 02/26/20 08:59 Lasix IV 40 mg 0800 LENA Administration Heparin Sodium (Porcine) 5,000 unit 02/25/20 22:00 02/26/20 21:51 Heparin SUB-Q 5,000 unit Q12HR LENA Administration Hydromorphone HCl 0.5 mg 02/25/20 20:28 02/26/20 03:58 Dilaudid IV 0.5 mg Q3H PRN Administration Pain , Severe (7-10) Memantine 10 mg 02/25/20 22:00 02/26/20 21:51 Memantine PO 10 mg BID LENA Administration Metolazone 2.5 mg 02/25/20 22:00 02/26/20 09:12 Zaroxolyn PO 2.5 mg QDAY LENA Administration Metoprolol Tartrate 100 mg 02/26/20 10:00 02/26/20 21:51 Metoprolol PO 100 mg BID LENA Administration Ondansetron HCl 4 mg 02/25/20 20:28 Zofran IV Q8H PRN Nausea And Vomiting Oxycodone/Acetaminophen 1 tab 02/25/20 20:28 02/25/20 22:00 Percocet 5/325 PO 1 tab Q6H PRN Administration Pain, Moderate (4-6) Potassium Chloride 20 meq 02/25/20 22:00 02/26/20 09:12 K-Dur PO 20 meq QDAY LENA Administration Sodium Chloride 10 ml 02/25/20 22:00 02/26/20 21:57 Sodium Chloride Flush Syringe 10 Ml IV 10 ml BID LENA Administration Sodium Chloride 10 ml 02/25/20 20:28 Sodium Chloride Flush Syringe 10 Ml IV PRN PRN LINE FLUSH Tramadol HCl 50 mg 02/26/20 14:59 02/26/20 21:50 Ultram PO 50 mg QHS PRN Administration Pain, Moderate (4-6)
--- NOTE | 2020-02-27 10:18 | Progress Note ---
Assessment and Plan tte reviewed - EF 50-55%, mild LVH, RV mod dilated, RV systolic function mildly reduced, RA severely dilated, mod aortic leaflet calcification with echo bright density on aortic valve (suspect calcification), severe aortic stenosis (mean gradient 48mmHg, peak gradient 77mmHg, ABBY 0.4cm), negative bubble study. Pt is a poor candidate for aggressive management (valve surgery) of aortic stenosis given age, advanced dementia and multiple co-morbidities. Continue with conservative cardiac management. Convert IV lasix to PO lasix. Optimize HR - increase lopressor dosage. Brain MRI shows acute infarcts which appear to be new in comparison to OP brain MRI images from last week. Pt has h/o fall with subdural hematoma ~7 years ago and thus she has not been on systemic OAC for AFib. Pt's daughter lives with pt, denies any falls in many years. Recommend initiation of longterm systemic AC given current clinical presentation if ok with neurology. D/w pt's daughter via phone, pt's daughter is in agreement with initiation of OAC. Neuro w/u in progress. Will defer to neurology for recs regarding timing of initiation of backend python developer systemic AC. The patient has been seen in conjunction with Dr. Conner who agrees with the assessment and plan of care. - Patient Problems (1) CVA (cerebral vascular accident) Current Visit: Yes Status: Acute (2) Acute heart failure with preserved ejection fraction (HFpEF) Current Visit: Yes Status: Acute (3) Chronic atrial fibrillation Current Visit: Yes Status: Chronic (4) Aortic stenosis Current Visit: Yes Status: Chronic (5) History of subdural hematoma (post traumatic) Current Visit: Yes Status: Chronic (6) Hypertension Current Visit: Yes Status: Chronic (7) Diabetes Current Visit: Yes Status: Chronic (8) Hyperlipidemia Current Visit: Yes Status: Chronic (9) Dementia Current Visit: Yes Status: Chronic Subjective Date of service: 02/27/20 Principal diagnosis: ? CVA; AFib Interval history: pt resting in bed, confused, requesting to see her daughter. tele reviewed - in AFib with HR 70s - 110s. Objective Last Vital Signs Temp 98.5 F 02/27/20 08:19 Pulse 95 H 02/27/20 08:19 Resp 20 02/27/20 08:19 BP 140/93 02/27/20 08:19 Pulse Ox 98 02/27/20 08:19 - Physical Examination General: No Apparent Distress HEENT: Positive: PERRL, Normocephaly, Mucus Membranes Moist Cardiac: Positive: irregularly irregular, S1/S2 Lungs: Positive: Decreased Breath Sounds Neuro: Positive: Other (withdrawn) Skin: Negative: Rash Musculoskeletal: No Pain Extremities: Present: +3 Edema (BLE) - Labs and Meds Comprehensive Metabolic Panel 02/27/20 Range/Units 05:06 Sodium 142 (137-145) mmol/L Potassium 3.4 L (3.6-5.0) mmol/L Chloride 99.6 (98-107) mmol/L Carbon Dioxide 32 H (22-30) mmol/L BUN 31 H (7-17) mg/dL Creatinine 1.6 H (0.6-1.2) mg/dL Glucose 80 (65-100) mg/dL Calcium 9.9 (8.4-10.2) mg/dL - Imaging and Cardiology EKG: report reviewed Echo: report reviewed (12/2018 showed EF 65%, RV mildly dilated, LA and RA severely dilated, 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 ) Cardiac cath: report reviewed (01/2017 showed normal coronaries, peak AV gradient 20mmHg, moderate . ) - Telemetry EKG Rhythm: Atrial Fibrillation
[2020-02-27] MEDS: POTASSIUM CHLORIDE ER 20 MEQ TAB PO SCH (10:39)
[2020-02-27] MEDS: FAMOTIDINE 20 MG TAB PO SCH (10:39)
[2020-02-27] MEDS: ASPIRIN 325 MG TAB PO SCH (10:40)
[2020-02-27] MEDS: HEPARIN 5,000 UNIT/1 ML VIAL SUB-Q SCH ×2 (10:40→21:13)
[2020-02-27] MEDS: metOLazone 2.5 MG TAB PO SCH (10:40)
[2020-02-27] MEDS: allopurinoL 100 MG TAB PO SCH (10:40)
[2020-02-27] MEDS: MEMANTINE 5 MG TAB PO SCH ×2 (10:42→21:12)
[2020-02-27] MEDS: FUROSEMIDE 40 MG TAB PO SCH (12:12)
--- NOTE | 2020-02-27 12:44 | Event Note ---
Date: 02/27/20 Case d/w neurology, Dr. Ortiz. Ok to initiate Eliquis tomorrow AM, 02/28/2020. Recommend Eliquis 5mg BID. D/c ASA. Currently stable cardiac status. Pt may discharge today from cardiology standpoint. Follow up in our [place] office with Dr. Hart on 03/19/2020 @ 10:00AM. Mann REINOSO NP / DR. GARCIA
[2020-02-27] MEDS: traMADol 50 MG TAB PO PRN ×2 (14:57→21:18)
[2020-02-27] MEDS: METOPROLOL TARTRATE 50 MG TAB PO SCH ×2 (14:58→21:13)
--- NOTE | 2020-02-27 17:51 | Progress Note ---
Assessment and Plan - Patient Problems (1) CVA (cerebral vascular accident) Current Visit: Yes Status: Acute Qualifiers: CVA mechanism: embolism Precerebral and cerebral artery: middle cerebral artery Laterality of affected vessel: right Qualified Code(s): I63.411 - C erebral infarction due to embolism of right middle cerebral artery Plan to address problem: Plan; 1) It is reasonable to start her on oral anticoagulant to prevent secondary embolic stroke. patient has had subdural hematoma in the past however the benefit of anticoagulant in her current condition outweigh its the risk of hematoma particularly traumatic if all the preventive measures applied. the etiology of her current embolic stroke could have been from chronic atrial fibrillation and this condition may be due to severe aortic stenosis(?valvular). Patient is not a candidate for valvular surgery as per the information. In order to consider watchman procedure patient still has to be on anticoagulant for at least 45 days. There is no risk of hemorrhagic transformation at this moment if she is on anticoagulant given the fact that this is a very small cortical embolic stroke without any mass-effect.(discussed with patient's sword swallower on the phone in great detail.) 2) Aggressive PT/OT/speech therapy 3) Education for secondary stroke prevention (2) Aortic stenosis Current Visit: Yes Status: Chronic Plan to address problem: Plan: 1) As per patient's media relations specialist and cardiothoracic surgeon if involved. 2) Patient is at risk of throwing another blood clot from this condition and may suffer from another embolic stroke if this problem is not corrected. 3) Please make family be involved in the care of this patient because she is at very high risk for having another embolic stroke. (3) Chronic atrial fibrillation Current Visit: Yes Status: Chronic Plan to address problem: Plan: 1) If this condition is at all due to severe aortic stenosis(?valvular) then treatment must be to correct severe aortic stenosis and anticoagulation as per patient's sword swallower recommendations. Again patient is at higher risk of having recurrent embolic stroke should she be not on any anticoagulant at this time. I discussed at length with the patient regarding her condition and possible treatment options. I have answered multiple questions posed by the patient to her best satisfactions. Patient agreed with the plan. Thank you very much for allowing us in the care of your patient. Please call us if you have any questions. Larisa Ortiz MD Tele-neurologist [phone] Subjective Date of service: 02/27/20 Principal diagnosis: right brain CVA; AFib,severe aortic stenosis Interval history: Subjective: Patient is seen and examined. She still has some dysarthric speech. She moves all 4 extremities without any difficulty. She knows that she is in the hospital but does not know her age. I reviewed her MRI of brain with [facility]I which revealed right hemispheric acute stroke. I also reviewed the results of 2D echocardiogram which revealed severe aortic stenosis. I discussed on the phone with patient's sword swallower about the options of treating with anticoagulant about her embolic stroke. Objective - Exam Narrative Exam: Awake, oriented x 1 Speech: dysarthric Memory: Normal Cranial nerves: II-XII: grossly intact Motor: Both upper extremities: Normal Both lower extremities: Normal Sensory: Light touch/pinprick-normal the rest of the neuro exam was difficult to examine - Vital Sign Vital Signs - 12hr 02/27/20 02/27/20 02/27/20 06:00 08:19 10:00 Temperature 98.5 F Pulse Rate 72 95 H 102 H Pulse Rate [ 72 Left Dorsalis Pedis] Pulse Rate [ 72 Left Radial] Pulse Rate [ 72 Right Dorsalis Pedis] Pulse Rate [ 72 Right Radial] Respiratory 20 21 Rate Blood Pressure 140/93 O2 Sat by Pulse 98 97 Oximetry 02/27/20 02/27/20 02/27/20 10:37 12:00 14:57 Temperature Pulse Rate 89 76 81 Pulse Rate [ Left Dorsalis Pedis] Pulse Rate [ Left Radial] Pulse Rate [ Right Dorsalis Pedis] Pulse Rate [ Right Radial] Respiratory Rate Blood Pressure 126/74 128/64 O2 Sat by Pulse 99 93 Oximetry 02/27/20 02/27/20 02/27/20 14:58 15:53 16:09 Temperature Pulse Rate 89 70 72 Pulse Rate [ Left Dorsalis Pedis] Pulse Rate [ Left Radial] Pulse Rate [ Right Dorsalis Pedis] Pulse Rate [ Right Radial] Respiratory 20 Rate Blood Pressure 134/67 90/50 O2 Sat by Pulse 99 99 Oximetry - Laboratory Findings CBC and BMP: 02/26/20 05:08 02/27/20 05:06 Abnormal Lab Findings: Abnormal Labs 02/25/20 02/25/20 02/25/20 11:25 11:25 11:25 MCV 98 H MCH 34 H MCHC 35 H Plt Count 86 L [place] % (Auto) 11.0 H Lymph # (Auto) 0.8 L Potassium Carbon Dioxide BUN 37 H Creatinine 1.3 H Glucose 106 H POC Glucose Total Bilirubin 1.30 H Alkaline Phosphatase 131 H CK-MB (CK-2) Rel Index 4.4 H NT-Pro-B Natriuret Pep 2504 H Albumin 3.7 L 02/25/20 02/26/20 02/26/20 11:40 05:08 05:08 MCV 101 H MCH 33 H MCHC Plt Count 91 L [place] % (Auto) 10.8 H Lymph # (Auto) Potassium 3.4 L Carbon Dioxide BUN 34 H Creatinine 1.5 H Glucose POC Glucose 114 H Total Bilirubin Alkaline Phosphatase CK-MB (CK-2) Rel Index NT-Pro-B Natriuret Pep Albumin 02/26/20 02/27/20 02/27/20 21:26 05:06 11:56 MCV MCH MCHC Plt Count [place] % (Auto) Lymph # (Auto) Potassium 3.4 L Carbon Dioxide 32 H BUN 31 H Creatinine 1.6 H Glucose POC Glucose 112 H 111 H Total Bilirubin Alkaline Phosphatase CK-MB (CK-2) Rel Index NT-Pro-B Natriuret Pep Albumin
[2020-02-27] MEDS: ALPRAZolam 0.25 MG TAB PO SCH (21:12)
[2020-02-28] MEDS: oxyCODONE /ACETAMINOPHEN 5-325MG TAB PO PRN (01:29)
[2020-02-28] MEDS ORDERED: QUEtiapine 25 MG TAB PO ONE (03:00)
[2020-02-28 06:14] LABS: Calcium 9.8 mg/dL (8.4-10.2)
[2020-02-28] MEDS: FUROSEMIDE 40 MG TAB PO SCH (09:48)
[2020-02-28] MEDS: FAMOTIDINE 20 MG TAB PO SCH (09:48)
[2020-02-28] MEDS: allopurinoL 100 MG TAB PO SCH (09:48)
[2020-02-28] MEDS: POTASSIUM CHLORIDE ER 20 MEQ TAB PO SCH (09:48)
[2020-02-28] MEDS: metOLazone 2.5 MG TAB PO SCH (09:48)
[2020-02-28] MEDS: MEMANTINE 5 MG TAB PO SCH (09:48)
[2020-02-28] MEDS: METOPROLOL TARTRATE 50 MG TAB PO SCH (09:48)
--- NOTE | 2020-02-28 09:57 | Progress Note ---
Assessment and Plan Currently stable cardiac status. Cont present cardiac management, including lopressor, PO lasix, zaroxolyn, Eliquis (ok to start today per neurology). Pt is a poor candidate for aggressive management (valvular surgery) of aortic stenosis given age, advanced dementia and multiple co-morbidities. Continue with conservative cardiac management and this time. Consider evaluation of Watchman device candidacy as OP per pt's primary simulation specialist. Pt may discharge today from cardiology standpoint. Follow up in our [place] office with Dr. Hart on 03/19/2020 @ 10:00AM. The patient has been seen in conjunction with Dr. Conner who agrees with the assessment and plan of care. - Patient Problems (1) CVA (cerebral vascular accident) Current Visit: Yes Status: Acute Qualifiers: Qualified Code(s): I63.411 - Cerebral infarction due to embolism of right middle cerebral artery (2) Acute heart failure with preserved ejection fraction (HFpEF) Current Visit: Yes Status: Acute (3) Chronic atrial fibrillation Current Visit: Yes Status: Chronic (4) Aortic stenosis Current Visit: Yes Status: Chronic (5) History of subdural hematoma (post traumatic) Current Visit: Yes Status: Chronic (6) Hypertension Current Visit: Yes Status: Chronic (7) Diabetes Current Visit: Yes Status: Chronic (8) Hyperlipidemia Current Visit: Yes Status: Chronic (9) Dementia Current Visit: Yes Status: Chronic Subjective Date of service: 02/28/20 Principal diagnosis: right brain CVA; AFib,severe aortic stenosis Interval history: pt resting in bed, confused, requesting to go home. tele reviewed - in AFib with HR 80s. Objective Last Vital Signs Temp 97.9 F 02/28/20 08:03 Pulse 84 02/28/20 06:00 Resp 20 02/28/20 08:03 BP 129/79 02/28/20 08:03 Pulse Ox 95 02/28/20 04:21 - Physical Examination General: No Apparent Distress (confused) HEENT: Positive: PERRL, Normocephaly, Mucus Membranes Moist Cardiac: Positive: irregularly irregular, S1/S2 Lungs: Positive: Decreased Breath Sounds Neuro: Positive: Other (confused) Skin: Negative: Rash Musculoskeletal: No Pain Extremities: Present: +3 Edema (BLE) - Labs and Meds Comprehensive Metabolic Panel 02/28/20 Range/Units 05:02 Sodium 136 L (137-145) mmol/L Potassium 3.4 L (3.6-5.0) mmol/L Chloride 94.2 L (98-107) mmol/L Carbon Dioxide 36 H (22-30) mmol/L BUN 29 H (7-17) mg/dL Creatinine 1.5 H (0.6-1.2) mg/dL Glucose 92 (65-100) mg/dL Calcium 9.8 (8.4-10.2) mg/dL - Imaging and Cardiology EKG: report reviewed Echo: report reviewed (02/2020: EF 50-55%, mild LVH, RV mod dilated, RV systolic function mildly reduced, RA severely dilated, mod aortic leaflet calcification with echo bright density on aortic valve (suspect calcification), severe aortic stenosis (mean gradient 48mmHg, peak gradient 77mmHg, ABBY 0.4cm), negative bubble study. 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 ) Cardiac cath: report reviewed (01/2017 showed normal coronaries, peak AV gradient 20mmHg, moderate . ) - Telemetry EKG Rhythm: Atrial Fibrillation
--- NOTE | 2020-02-28 09:59 | Discharge Summary ---
Providers - Providers Date of Admission: 02/27/20 09:17 Date of discharge: 02/28/20 Attending physician: PABLO BENSON 02/25/20 13:20 Consult to Physician [CONS] Urgent Comment: Consulting Provider: ETHAN BROWNING Physician Instructions: Reason For Exam: afib, cva, not anticoagulated 02/25/20 20:28 Consult to Physician [CONS] Routine Comment: Consulting Provider: MARIAH TRIVEDI Physician Instructions: Reason For Exam: Dysarthria, rule out CVA Physical Therapy Evaluation and Treat [CONS] Routine Comment: Darrion Trivedi Reason For Exam: Dysarthria rule out CVA 02/25/20 20:40 Occupational Therapy Evaluate and Treat [CONS] Routine Comment: Reason For Exam: Neuro deficits Physical Therapy Evaluation and Treat [CONS] Routine Comment: Reason For Exam: Neuro deficits Hospitalization Reason for admission: afib Condition: Stable Hospital course: The pt is a 79 YO female with a past medical history of permanent atrial fibrillation, no systemic AC due to h/o fall with subdural hematoma (>10 years ago), aortic stenosis (moderate to severe), HTN, DM, HLP, chronic BLE edema, advanced dementia who presented to ED via EMS accompanied by her daughter for evaluation of possible stroke. Pt's daughter reported that pt went to sleep in her normal state of health last night. Pt awakened the day [employer] around 8:30AM and her daughter noted her to have "glassy eyes" and difficultly speaking and swallowing. Patient reportedly had dysarthria and was seen by neurology in consultation. The patient was admitted with diagnosis of acute ischemic CVA. Neurology recommended ASA 325 mg PO qday, MRI Brain w/o contrast, TTEcho, CUS, check LDL/HgbA1C/TSH-T4, with maintenance of blood pressure with goal 160-200 mmHg and DBP 80-100 mmHg for 48 hours and then slowly normalize. Statin therapy for a goal LDL of 70. Physical therapy evaluated the patient and recommended home health PT and rolling walker. Patient will be evaluated by speech as an outpatient. Bedside swallowing evaluation was within normal limits. Cardiology also saw the patient for chronic atrial fibrillation And after discussion with neurology recommendations were for Eliquis 5 mg twice daily for anticoagulation. Neurology felt that the patient has had subdural hematoma in the past however the benefit of anticoagulant in her current condition outweigh its the risk of hematoma particularly traumatic if all the preventive measures applied. the etiology of her current embolic stroke could have been from chronic atrial fibrillation and this condition may be due to severe aortic stenosis(?valvular). Patient is not a candidate for valvular surgery as per the information. In order to consider watchman procedure patient still has to be on anticoagulant for at least 45 days. There is no risk of hemorrhagic transformation at this moment if she is on anticoagulant given the fact that this is a very small cortical embolic stroke without any mass- effect.(Neurology discussed with patient's airport ramp attendant on the phone in great detail.) Cardiology to follow her recommendations per neurology regarding aortic stenosis. Pt is a poor candidate for aggressive management (valvular surgery) of aortic stenosis given age, advanced dementia and multiple co- morbidities. Continue with conservative cardiac management and this time. Consider evaluation of Watchman device candidacy as OP per pt's primary airport ramp attendant. Dedicated discharge time 35 minutes Disposition: [id number] TO HOME OR SELFCARE Time spent for discharge: 35 - Discharge Diagnoses (1) Acute heart failure with preserved ejection fraction (HFpEF) Status: Acute (2) CVA (cerebral vascular accident) Status: Acute Qualifiers: CVA mechanism: embolism Precerebral and cerebral artery: middle cerebral artery Laterality of affected vessel: right Qualified Code(s): I63.411 - Cerebral infarction due to embolism of right middle cerebral artery (3) Aortic stenosis Status: Chronic (4) Chronic atrial fibrillation Status: Chronic (5) History of subdural hematoma (post traumatic) Status: Chronic Core Measure Documentation - Palliative Care Palliative Care/ Comfort Measures: Not Applicable - Core Measures Any of the following diagnoses?: heart failure, stroke - Heart Failure Discharge Requirements RAMSEY/ARB for LVSD if EF <40%: No Reason for no RAMSEY/ARB: Renal impairment Beta tyrell at discharge: Yes - Stroke Discharge Requirements Statin for LDL = or >70 mg/dl on DC: Yes Anticoag for atrial fib/atrial flutter: Yes Antithrombotic for ischemic stroke: No Reason for no antithrombotic on DC: Medical Contraindication (previous SDH) Exam - Constitutional Vitals: Temp Pulse Resp BP Pulse Ox 97.9 F 84 20 129/79 95 02/28/20 08:03 02/28/20 06:00 02/28/20 08:03 02/28/20 08:03 02/28/20 04:21 General appearance: Present: no acute distress, well-nourished - EENT Eyes: Present: PERRL ENT: hearing intact, clear oral mucosa - Neck Neck: Present: supple, normal ROM - Respiratory Respiratory effort: normal Respiratory: bilateral: CTA - Cardiovascular Heart Sounds: Present: S1 & S2. Absent: rub, click - Extremities Extremities: pulses symmetrical, No edema Peripheral Pulses: within normal limits - Abdominal General gastrointestinal: Present: soft, non-tender, non-distended, normal bowel sounds Female genitourinary: Present: normal - Integumentary Integumentary: Present: clear, warm, dry - Musculoskeletal Musculoskeletal: gait normal, strength equal bilaterally - Psychiatric Psychiatric: appropriate mood/affect, intact judgment & insight - Neurologic Neurologic: CNII-XII intact, moves all extremities Plan Activity: advance as tolerated Weight Bearing Status: Weight Bear as Tolerated Diet: regular Special Instructions: physical therapy Additional Instructions: Pt is a poor candidate for aggressive management (valvular surgery) of aortic stenosis given age, advanced dementia and multiple co-morbidities. Continue with conservative cardiac management and this time. Consider evaluation of Watchman device candidacy as OP per pt's primary airport ramp attendant. Follow up with: PRIMARY,CARE [Other] - 3-5 Days Prescriptions: Apixaban [Eliquis] 5 mg PO Q12HR #60 tablet Potassium Chloride [K-Dur] 20 meq PO QDAY #30 tablet Furosemide [Lasix TAB] 40 mg PO QDAY #30 tablet AtorvaSTATin [Lipitor] 40 mg PO QHS #30 tablet Metoprolol [Lopressor TAB] 50 mg PO TID #90 Memantine 10 mg PO BID #60 metOLazone [Zaroxolyn] 2.5 mg PO 2XW #20 allopurinoL [Zyloprim] 100 mg PO QDAY #30
[2020-02-28] MEDS ORDERED: APIXABAN 5 MG TAB PO SCH (10:00)
[2020-02-28 12:18] VITALS: BP 136/95
== END 2020-02-28 14:30 | disposition home health service (06) | DRG 64 ==
LOC: ED 11:04 → 4A 13:04 → OBSVTOIN 02-27 09:17
PROVIDERS: ADMIT Internal Medicine; ATTEND Hospitalist
DX: I63.411 Cerebral infarction due to embolism of right middle cerebral artery (principal); I50.33 Acute on chronic diastolic (congestive) heart failure; I48.20 Chronic atrial fibrillation, unspecified; E11.9 Type 2 diabetes mellitus without complications; F41.9 Anxiety disorder, unspecified; I11.0 Hypertensive heart disease with heart failure; E66.9 Obesity, unspecified; F03.90 Unspecified dementia, unspecified severity, without behavioral disturbance, psychotic disturbance, mood disturbance, and anxiety; M10.9 Gout, unspecified; I35.0 Nonrheumatic aortic (valve) stenosis; R29.703 NIHSS score 3; Z68.32 Body mass index [BMI] 32.0-32.9, adult; Z79.82 Long term (current) use of aspirin; Z79.01 Long term (current) use of anticoagulants; Z88.5 Allergy status to narcotic agent; Z88.8 Allergy status to other drugs, medicaments and biological substances; Z90.49 Acquired absence of other specified parts of digestive tract; Z90.5 Acquired absence of kidney; Z79.84 Long term (current) use of oral hypoglycemic drugs
CPT/HCPCS: 36415; 70450; 70544; 70551; 71045; 80048; 80053; 80061; 81001; 82550; 82553; 82962; 83036; 83735; 83880; 84484; 85025; 85610; 85670; 85730; 87116; 93005; 93306; 93880; 96365; 96366; 96367; 96375; G0378; A9270-GY; J1170; J1644; J1940; J2405

== ENCOUNTER 2021-01-03 01:07 | Emergency (ER) | payer MEDICARE ==
--- NOTE | 2021-01-03 01:44 | Emergency Department Report ---
HPI - General Chief Complaint: Extremity Injury, Lower Time Seen by Provider: 01/03/21 01:33 - HPI HPI: 80-year-old female presents to the emergency department via EMS from home, with her daughter at bedside, with complaint of right medial knee pain and right lower leg pain and swelling since earlier this afternoon. Patient has a history of atrial fibrillation anticoagulated on Eliquis, CVA, dementia, CHF, aortic stenosis, gout, arthritis. The patient is a poor historian secondary to her history of dementia. The patient's daughter is providing all information, but denies any recent trauma. Apparently the patient suddenly stopped walking and began screaming secondary to pain in the previously mentioned locations. The patient is on Lasix for history of lower extremity swelling. The daughter says that the area in her right leg felt "extremely hot", but she denies any skin color change. They called their PCP and was told to come to the emergency department to rule out DVT and for further evaluation. 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 - Social History Smoking Status: Never Smoker - Medications Home Medications: Home Medications Medication Instructions Recorded Confirmed Last Taken Type ALPRAZolam [Xanax] 0.25 mg PO HS 04/30/13 02/25/20 02/24/20 History traMADoL [Ultram 50 MG tab] 50 mg PO QHS PRN 04/30/13 02/25/20 02/24/20 History Apixaban [Eliquis] 5 mg PO Q12HR #60 tablet 02/28/20 Unknown Rx AtorvaSTATin [Lipitor] 40 mg PO QHS #30 tablet 02/28/20 Unknown Rx Famotidine [Pepcid] 20 mg PO DAILY tablet 02/28/20 Unknown Rx Furosemide [Lasix TAB] 40 mg PO QDAY #30 tablet 02/28/20 Unknown Rx Memantine 10 mg PO BID #60 02/28/20 Unknown Rx Metoprolol [Lopressor TAB] 50 mg PO TID #90 02/28/20 Unknown Rx Potassium Chloride [K-Dur] 20 meq PO QDAY #30 tablet 02/28/20 Unknown Rx allopurinoL [Zyloprim] 100 mg PO QDAY #30 02/28/20 Unknown Rx metOLazone [Zaroxolyn] 2.5 mg PO 2XW #20 02/28/20 Unknown Rx traMADoL [Ultram 50 MG tab] 50 mg PO QHS PRN tablet 02/28/20 Unknown Rx ED Review of Systems ROS: Stated complaint: RT LEG PAIN Other details as noted in HPI Comment: Unobtainable due to pts medical conditions Musculoskeletal: joint swelling, arthralgia, myalgia Skin: denies: rash, lesions Physical Exam - Physical Exam Vital Signs: Vital Signs 01/03/21 01:30 Temperature 98.2 F Pulse Rate 90 Respiratory 18 Rate Blood Pressure 107/89 [Left] O2 Sat by Pulse 100 Oximetry Physical Exam: GENERAL: The patient is well-developed well-nourished. HENT: Normocephalic. Atraumatic. Patient has moist mucous membranes. EYES: Extraocular motions are intact. NECK: Supple. Trachea is midline. CHEST/LUNGS: Clear to auscultation. There is no respiratory distress noted. HEART/CARDIOVASCULAR: Regular. There is no tachycardia. There is no murmur. ABDOMEN: Abdomen is soft, nontender. Patient has normal bowel sounds. SKIN: Skin is warm and dry. There is bilateral lower extremity nonpitting sw elling with right greater than left. NEURO: The patient is awake, alert, and cooperative. Normal speech. MUSCULOSKELETAL: There is some medial right knee and distal thigh tenderness to palpation. ED Course Vital Signs 01/03/21 01:30 Temperature 98.2 F Pulse Rate 90 Respiratory 18 Rate Blood Pressure 107/89 [Left] O2 Sat by Pulse 100 Oximetry ED Medical Decision Making - Lab Data Result diagrams: 01/03/21 01:50 01/03/21 01:50 Lab Results 01/03/21 01/03/21 Range/Units 01:50 01:50 WBC 6.7 (4.5-11.0) K/mm3 RBC 3.62 L (3.65-5.03) M/mm3 Hgb 12.0 (10.1-14.3) gm/dl Hct 34.5 (30.3-42.9) % MCV 96 (79-97) fl MCH 33 H (28-32) pg MCHC 35 H (30-34) % RDW 14.1 (13.2-15.2) % Plt Count 126 L (140-440) K/mm3 Lymph % (Auto) 7.1 L (13.4-35.0) % [place] % (Auto) 5.1 (0.0-7.3) % Eos % (Auto) 1.2 (0.0-4.3) % Baso % (Auto) 0.4 (0.0-1.8) % Lymph # (Auto) 0.5 L (1.2-5.4) K/mm3 [place] # (Auto) 0.3 (0.0-0.8) K/mm3 Eos # (Auto) 0.1 (0.0-0.4) K/mm3 Baso # (Auto) 0.0 (0.0-0.1) K/mm3 Seg Neutrophils % 86.2 H (40.0-70.0) % Seg Neutrophils # 5.8 (1.8-7.7) K/mm3 Sodium 138 (137-145) mmol/L Potassium 4.0 (3.6-5.0) mmol/L Chloride 102.6 (98-107) mmol/L Carbon Dioxide 26 (22-30) mmol/L Anion Gap 13 mmol/L BUN 31 H (7-17) mg/dL Creatinine 1.2 (0.6-1.2) mg/dL Estimated GFR 43 ml/min BUN/Creatinine Ratio 26 % Glucose 161 H (65-100) mg/dL Calcium 9.5 (8.4-10.2) mg/dL Magnesium 2.40 H (1.7-2.3) mg/dL - Radiology Data Radiology results: report reviewed DUPLEX DOPPLER LOWER EXTREMITY VEINS, RIGHT INDICATION / CLINICAL INFORMATION: RLE pain and swelling. TECHNIQUE: Duplex doppler imaging was performed through the veins of the right lower extremity using venous compression and other maneuvers. COMPARISON: None available. FINDINGS: RIGHT COMMON FEMORAL VEIN: Negative. RIGHT FEMORAL VEIN: Limited compressibility of the distal right femoral vein. RIGHT POPLITEAL VEIN: Negative. RIGHT CALF VEINS: Poorly evaluated due to lower extremity edema ADDITIONAL FINDINGS: None. IMPRESSION: 1. Limited compressibility of the distal right femoral vein, suspicious for nonocclusive DVT. Right knee radiograph, 2 views HISTORY: Lower extremity pain and swelling. COMPARISON: None FINDINGS: There is advanced tricompartmental osteoarthritis of the right knee, preferentially involving the lateral compartment. Nonspecific large joint effusion is present. No cortical destructive changes identified. No acute fracture or malalignment. IMPRESSION: Nonspecific large knee joint effusi on. Advanced tricompartmental osteoarthritis. No acute osseous findings. - Medical Decision Making This patient presents with a complaint of some pain to the medial right distal thigh and medial right knee that started earlier in the day. The patient also began having increased swelling to the right leg. On examination there is bilateral lower extremity nonpitting swelling with right greater than left. There is some reproducible tenderness to palpation in the areas mentioned above. She appears neurovascularly intact. The patient does not appear in any respiratory or acute distress. X-ray of the right knee shows moderate to severe osteoarthritis with a nonspecific large knee effusion. Venous Doppler ultrasound of the right lower extremity shows decrease compression of the distal femoral vein suspicious for a nonocclusive DVT. Patient's labs have been mostly unremarkable except for some renal insufficiency consistent with, if not improved from, previous visits. Patient was given a dose of tramadol for discomfort with some improvement. The patient is already anticoagulated on Eliquis and as the Doppler is suspicious for a small nonocclusive DVT, I did not feel that she needed any change in her anticoagulation at this moment. She has good outpatient follow-up with primary care and cardiology. All of this was discussed with the patient's daughter who understands and agrees to the plan. Critical Care Time: No Critical care attestation.: If time is entered above; I have spent that time in minutes in the direct care of this critically ill patient, excluding procedure time. ED Disposition Clinical Impression: Knee effusion, right Right femoral vein DVT Qualifiers: Chronicity: unspecified Qualified Code(s): I82.411 - Acute embolism and thrombosis of right femoral vein Osteoarthritis of knee Qualifiers: Osteoarthritis type: unspecified Laterality: right Qualified Code(s): M17.11 - Unilateral primary osteoarthritis, right knee Disposition: 01 HOME / SELF CARE / HOMELESS Is pt being admited?: No Condition: Stable Instructions: Knee Effusion, Osteoarthritis, Deep Vein Thrombosis Additional Instructions: Please follow-up with your primary care physician in the next few days. Continue taking the Eliquis and all of your previously scheduled/prescribed medications. Return to the emergency department with any worsening of your symptoms, new or concerning symptoms not addressed during this current emergency department visi t, or with any acute distress. Referrals: PRIMARY CARE, [Primary Care Provider] - 2-3 Days Time of Disposition: 04:43
[2021-01-03 02:02] LABS: Basophils % (Auto) 0.4 % (0.0-1.8); Eosinophils # (Auto) 0.1 K/mm3 (0.0-0.4); Eosinophils % (Auto) 1.2 % (0.0-4.3); Hematocrit 34.5 % (30.3-42.9); Lymphocytes # (Auto) 0.5 K/mm3 (1.2-5.4); Lymphocytes % (Auto) 7.1 % (13.4-35.0); Mean Corpuscular HGB Conc 35 % (30-34); Mean Corpuscular Volume 96 fl (79-97); Monocytes # (Auto) 0.3 K/mm3 (0.0-0.8); Monocytes % (Auto) 5.1 % (0.0-7.3); Platelet Count 126 K/mm3 (140-440); Red Blood Count 3.62 M/mm3 (3.65-5.03); Red Cell Distribution Width 14.1 % (13.2-15.2)
[2021-01-03 02:22] LABS: Calcium 9.5 mg/dL (8.4-10.2)
--- NOTE | 2021-01-03 02:35 | XRay Report ---
Right knee radiograph, 2 views HISTORY: Lower extremity pain and swelling. COMPARISON: None FINDINGS: There is advanced tricompartmental osteoarthritis of the right knee, preferentially involvi ng the lateral compartment. Nonspecific large joint effusion is present. No cortical destructive so ges identified. No acute fracture or malalignment. IMPRESSION: Nonspecific large knee joint effusion. Advanced tricompartmental osteoarthritis. No acute osseous findings. Signer Name: Abner Lin MD Signed: 01/03/2021 2:31 AM Workstation Name: [id number]
--- NOTE | 2021-01-03 03:49 | Vascular Lab Report ---
DUPLEX DOPPLER LOWER EXTREMITY VEINS, RIGHT INDICATION / CLINICAL INFORMATION: RLE pain and swelling. TECHNIQUE: Duplex doppler imaging was performed through the veins of the right lower extremity using venous comp ression and other maneuvers. COMPARISON: None available. FINDINGS: RIGHT COMMON FEMORAL VEIN: Negative. RIGHT FEMORAL VEIN: Limited compressibility of the distal right femoral vein. RIGHT POPLITEAL VEIN: Negative. RIGHT CALF VEINS: Poorly evaluated due to lower extremity edema ADDITIONAL FINDINGS: None. IMPRESSION: 1. Limited compressibility of the distal right femoral vein, suspicious for nonocclusive DVT. Findings were discussed with Dr. Diaz by phone on 01/03/2021 at 2:45 AM Signer Name: Abner Lin MD Signed: 01/03/2021 3:45 AM Workstation Name: [id number]
[2021-01-03] MEDS ORDERED: traMADol 50 MG TAB PO ONE (03:53)
[2021-01-03 04:53] VITALS: BP 141/84
== END 2021-01-03 04:55 | disposition home or self-care (01) ==
LOC: ED 01:07
DX: I82.411 Acute embolism and thrombosis of right femoral vein (principal); M25.461 Effusion, right knee; M17.11 Unilateral primary osteoarthritis, right knee; I10 Essential (primary) hypertension
CPT/HCPCS: 36415; 80048; 83735; 85025; 99285